=== PATIENT | male | born 1965 | race Caucasian/White ===

== ENCOUNTER 2016-02-13 13:07 | Inpatient (IN) | payer OTHER ==
[2016-02-13 16:10] VITALS: BMI 26.6
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
[2016-02-13] MEDS ORDERED: MAGNESIUM HYDROX 2400MG/30ML ORAL SUSPENSION 30 ML CUP PO PRN (16:38)
[2016-02-13] MEDS ORDERED: MAGNESIUM CITRATE 300 ML BOTTLE PO PRN (16:38)
[2016-02-13] MEDS ORDERED: MENTHOL/PHENOL 1 EACH UD MM PRN (16:38)
[2016-02-13] MEDS ORDERED: MAG HYDROX/AL HYDROX/SIMETH 30 ML UNIT-DOSE CUP PO PRN (16:38)
[2016-02-13] MEDS ORDERED: hydrOXYzine PAMOATE 50 MG CAPSULE (FP) PO PRN (16:38)
[2016-02-13] MEDS ORDERED: LOPERAMIDE HCL 2 MG CAPSULE PO PRN (16:38)
[2016-02-13] MEDS ORDERED: ACETAMINOPHEN 325 MG TABLET (FP) PO PRN (16:38)
[2016-02-13] MEDS ORDERED: chlordiazePOXIDE HCL 25 MG CAPSULE PO PRN (16:38)
[2016-02-13] MEDS ORDERED: P-EPHED 60MG/TRIPROLIDI 2.5MG TABLET PO PRN (16:38)
[2016-02-13] MEDS ORDERED: IBUPROFEN 400 MG TABLET (FP) PO PRN (16:38)
[2016-02-13] MEDS ORDERED: NICOTINE POLACRILEX 2 MG GUM BC PRN (16:38)
[2016-02-13] MEDS ORDERED: guaiFENesin/D-METHORPHAN HB 10 ML UNIT-DOSE CUPS PO PRN (16:38)
[2016-02-13] MEDS ORDERED: ONDANSETRON *ODT* 4 MG TABLET SL PRN (16:52)
[2016-02-13] MEDS ORDERED: chlordiazePOXIDE HCL 25 MG CAPSULE PO ONE (18:45)
[2016-02-13] MEDS: THIAMINE HCL 100 MG TABLET (FP) PO SCH (22:05)
[2016-02-13] MEDS: chlordiazePOXIDE HCL 25 MG CAPSULE PO SCH (22:06)
[2016-02-13] MEDS: diphenhydrAMINE HCL 50 MG CAPSULE PO PRN (22:07)
[2016-02-13 22:59] LABS: URINE APPEARANCE SLCLOUDY; URINE BLOOD NEGATIVE (NEGATIVE); URINE COLOR AMBER; URINE GLUCOSE (UA) NEGATIVE (NEGATIVE); URINE KETONE 1+ (NEGATIVE); URINE LEUK ESTERASE NEGATIVE (NEGATIVE); URINE NITRITE NEGATIVE (NEGATIVE); URINE UROBILINOGEN NEGATIVE E.U./dl (0.2-1.0)
[2016-02-13 23:01] LABS: URINE PROTEIN 2+ (NEGATIVE)
[2016-02-13 23:07] LABS: URINE BACTERIA RARE /hpf (NONE SEEN); URINE HYALINE CAST 1 /lpf; URINE MUCUS MODERATE; URINE RBC 6 /hpf (0-3); URINE WBC 4 /hpf (3-5); YEAST FEW
[2016-02-14] MEDS: chlordiazePOXIDE HCL 25 MG CAPSULE PO SCH ×4 (06:22→22:12)
[2016-02-14] MEDS: PRENATAL VITAMINS W/ FOLIC ACID TABLET (FP) PO SCH (10:09)
[2016-02-14] MEDS: cloNIDine HCL 0.1 MG TABLET PO PRN (10:09)
[2016-02-14] MEDS: CYCLOBENZAPRINE HCL 10 MG TABLET (FP) PO PRN (10:09)
[2016-02-14] MEDS: NICOTINE 21 MG/24 HOURS TOPICAL PATCH TD SCH (10:10)
--- NOTE | 2016-02-14 10:17 | PN ---
S CIWA - CIWA Score Nausea/Vomitin Muscle Tremors: 3 Anxiety: 3 Agitation: 2 Paroxysmal Sweats: 2 Orientation: 0-Oriented Tacttile Disturbances: 1-Very Mild Itch/Numbness Auditory Disturbances: 1-Very Mild Visual Disturbances: 1-Very Mild Sensitivity Headache: 2-Mild CIWA-Ar Total Score: 18 BHS Progress Note (SOAP) Subjective: ALERT,IRRITABLE,ANXIOUS,INTERRUPTED SLEEP,TREMOR Objective: 02/14/16 10:14 Vital Signs Temperature 98.0 F 02/14/16 09:37 Pulse Rate 88 02/14/16 09:37 Respiratory Rate 18 02/14/16 09:37 Blood Pressure 122/84 02/14/16 09:37 O2 Sat by Pulse Oximetry (%) EKG NSR NO CHEST PAIN,NO SOB,NO DIZZINESS Laboratory Last Values Urine Color Leslie 02/13/16 22:05 Urine Appearance Slcloudy 02/13/16 22:05 Urine pH 9.0 (5.0-8.0) H D 02/13/16 22:05 Ur Specific [place] 1.026 (1.001-1.035) 02/13/16 22:05 Urine Protein 2+ (NEGATIVE) H 02/13/16 22:05 Urine Glucose (UA) Negative (NEGATIVE) 02/13/16 22:05 Urine Ketones 1+ (NEGATIVE) H 02/13/16 22:05 Urine Blood Negative (NEGATIVE) 02/13/16 22:05 Urine Nitrite Negative (NEGATIVE) 02/13/16 22:05 Urine Bilirubin 2.0 (NEGATIVE) 02/13/16 22:05 Urine Urobilinogen Negative E.U./dl (0.2-1.0) 02/13/16 22:05 Ur Leukocyte Esterase Negative (NEGATIVE) 02/13/16 22:05 Urine RBC 6 /hpf (0-3) 02/13/16 22:05 Urine WBC 4 /hpf (3-5) 02/13/16 22:05 Urine Bacteria Rare /hpf (NONE SEEN) 02/13/16 22:05 Hyaline Casts 1 /lpf 02/13/16 22:05 Urine Mucus Moderate 02/13/16 22:05 Urine Yeast Few 02/13/16 22:05 LABS PENDING Assessment: 02/14/16 10:15 WITHDRAWAL SYMPTOM Plan: CONTINUE DETOX,ENCOURAGE ORAL FLUID
[2016-02-14 11:26] LABS: MCH 32.9 pg (25.7-33.7); MCHC 33.1 g/dl (32.0-35.9); MEAN CELL VOLUME 99.4 fl (80-96); MEAN PLT VOLUME 9.5 fl (7.5-11.1); PLATELET COUNT 169 K/MM3 (134-434); RDW 13.7 % (11.9-15.9); WHITE BLOOD COUNT 12.6 K/mm3 (4.0-10.0)
[2016-02-14 11:45] LABS: ALBUMIN 4.5 g/dl (3.4-5.0); ALK PHOS 89 U/L (45-117); ANION GAP 12 (8-16); BILIRUBIN,TOTAL 0.5 mg/dL (0.2-1.0); CALCIUM 9.4 mg/dL (8.5-10.1); CO2 29 mmol/L (21-32); GLUCOSE,RANDOM 97 mg/dL (74-106); SGOT/AST 61 U/L (15-37); SGPT/ALT 33 U/L (12-78); TOT PROT 8.1 g/dl (6.4-8.2)
[2016-02-14] MEDS: THIAMINE HCL 100 MG TABLET (FP) PO SCH (22:12)
[2016-02-14] MEDS: diphenhydrAMINE HCL 50 MG CAPSULE PO PRN (22:12)
[2016-02-15] MEDS: chlordiazePOXIDE HCL 25 MG CAPSULE PO SCH ×3 (06:00→17:16)
--- NOTE | 2016-02-15 10:21 | PN ---
S CIWA - CIWA Score Nausea/Vomitin Muscle Tremors: 3 Anxiety: 2 Agitation: 2 Paroxysmal Sweats: 1-Minimal Palms Moist Orientation: 0-Oriented Tacttile Disturbances: 1-Very Mild Itch/Numbness Auditory Disturbances: 1-Very Mild Visual Disturbances: 1-Very Mild Sensitivity Headache: 1-Very Mild CIWA-Ar Total Score: 15 S Progress Note (SOAP) Subjective: ALERT,IRRITABLE,ANXIOUS,INTERRUPTED SLEEP,TREMOR, Objective: 02/15/16 10:18 Vital Signs Temperature 96.2 F L 02/15/16 09:43 Pulse Rate 69 02/15/16 09:43 Respiratory Rate 18 02/15/16 09:43 Blood Pressure 114/79 02/15/16 09:43 O2 Sat by Pulse Oximetry (%) Laboratory Last Values WBC 12.6 K/mm3 (4.0-10.0) H 02/14/16 06:00 RBC 4.61 M/mm3 (4.00-5.60) 02/14/16 06:00 Hgb 15.2 GM/dL (11.7-16.9) 02/14/16 06:00 Hct 45.9 % (35.4-49) 02/14/16 06:00 MCV 99.4 fl (80-96) H 02/14/16 06:00 MCHC 33.1 g/dl (32.0-35.9) 02/14/16 06:00 RDW 13.7 % (11.9-15.9) 02/14/16 06:00 Plt Count 169 K/MM3 (134-434) D 02/14/16 06:00 MPV 9.5 fl (7.5-11.1) 02/14/16 06:00 Sodium 137 mmol/L (136-145) 02/14/16 06:00 Potassium 3.5 mmol/L (3.5-5.1) 02/14/16 06:00 Chloride 96 mmol/L (98-107) L 02/14/16 06:00 Carbon Dioxide 29 mmol/L (21-32) 02/14/16 06:00 Anion Gap 12 (8-16) 02/14/16 06:00 BUN 10 mg/dL (7-18) 02/14/16 06:00 Creatinine 1.0 mg/dL (0.7-1.3) D 02/14/16 06:00 Creat Clearance w eGFR > 60 (>60) 02/14/16 06:00 Random Glucose 97 mg/dL (74-106) 02/14/16 06:00 Calcium 9.4 mg/dL (8.5-10.1) 02/14/16 06:00 Total Bilirubin 0.5 mg/dL (0.2-1.0) D 02/14/16 06:00 AST 61 U/L (15-37) H D 02/14/16 06:00 ALT 33 U/L (12-78) D 02/14/16 06:00 Alkaline Phosphatase 89 U/L (45-117) D 02/14/16 06:00 Total Protein 8.1 g/dl (6.4-8.2) 02/14/16 06:00 Albumin 4.5 g/dl (3.4-5.0) 02/14/16 06:00 Urine Color Leslie 02/13/16 22:05 Urine Appearance Slcloudy 02/13/16 22:05 Urine pH 9.0 (5.0-8.0) H D 02/13/16 22:05 Ur Specific [place] 1.026 (1.001-1.035) 02/13/16 22:05 Urine Protein 2+ (NEGATIVE) H 02/13/16 22:05 Urine Glucose (UA) Negative (NEGATIVE) 02/13/16 22:05 Urine Ketones 1+ (NEGATIVE) H 02/13/16 22:05 Urine Blood Negative (NEGATIVE) 02/13/16 22:05 Urine Nitrite Negative (NEGATIVE) 02/13/16 22:05 Urine Bilirubin 2.0 (NEGATIVE) 02/13/16 22:05 Urine Urobilinogen Negative E.U./dl (0.2-1.0) 02/13/16 22:05 Ur Leukocyte Esterase Negative (NEGATIVE) 02/13/16 22:05 Urine RBC 6 /hpf (0-3) 02/13/16 22:05 Urine WBC 4 /hpf (3-5) 02/13/16 22:05 Urine Bacteria Rare /hpf (NONE SEEN) 02/13/16 22:05 Hyaline Casts 1 /lpf 02/13/16 22:05 Urine Mucus Moderate 02/13/16 22:05 Urine Yeast Few 02/13/16 22:05 RPR Titer Nonreactive (NONREACTIVE) 02/14/16 06:00 Hepatitis C Antibody <0.1 s/co ratio (0.0-0.9) 02/14/16 06:00 Assessment: 02/15/16 10:19 WITHDRAWAL SYMPTOM Plan: CONTINUE DETOX,WBC 12,600,ENCOURAGE ORAL FLUID,REPEAT CBC IN AM
[2016-02-15] MEDS: PRENATAL VITAMINS W/ FOLIC ACID TABLET (FP) PO SCH (10:34)
[2016-02-15] MEDS: CYCLOBENZAPRINE HCL 10 MG TABLET (FP) PO PRN (10:34)
[2016-02-15] MEDS: cloNIDine HCL 0.1 MG TABLET PO PRN (10:34)
[2016-02-15] MEDS: NICOTINE 21 MG/24 HOURS TOPICAL PATCH TD SCH (10:34)
[2016-02-15] MEDS: diphenhydrAMINE HCL 50 MG CAPSULE PO PRN (22:10)
[2016-02-15] MEDS: THIAMINE HCL 100 MG TABLET (FP) PO SCH (22:10)
[2016-02-15] MEDS: chlordiazePOXIDE 5 MG CAPSULE PO SCH (22:12)
[2016-02-16] MEDS: chlordiazePOXIDE 5 MG CAPSULE PO SCH ×2 (05:39→10:55)
[2016-02-16 06:21] VITALS: TEMP 96.7
--- NOTE | 2016-02-16 08:24 | PN ---
S Progress Note (SOAP) Subjective: alert,no complaint Objective: 02/16/16 08:21 Vital Signs Temperature 96.7 F L 02/16/16 06:20 Pulse Rate 70 02/16/16 06:20 Respiratory Rate 16 02/16/16 06:20 Blood Pressure 95/75 02/16/16 06:20 O2 Sat by Pulse Oximetry (%) Assessment: 02/16/16 08:21 patient is stable for discharge Plan: discharge today,follow up with after care program [facility]
--- NOTE | 2016-02-16 08:28 | DS ---
[facility] Detox Discharge Summary Admission Date: 02/13/16 Discharge Date: 02/16/16 - History Present History: Alcohol Dependence, Cannabis Dependence Additional Comments: stable for discharge today,follow up with after care program as arrangement Pertinent Past History: nicotine dependence s/p left inguinal hernia repair s/p surgery left knee - Physical Exam Results Vital Signs: Vital Signs Temperature 96.7 F L 02/16/16 06:20 Pulse Rate 70 02/16/16 06:20 Respiratory Rate 16 02/16/16 06:20 Blood Pressure 95/75 02/16/16 06:20 O2 Sat by Pulse Oximetry (%) - Treatment Hospital Course: Detox Protocol Followed, Detoxed Safely, Responded well, Discharged Condition Good Patient has Accepted a Rehab Referral to: declined - Medication Discharge Medications: Ambulatory Orders NK [No Known Home Medication] 02/13/16 - AMA Did Patient Leave Against Medical Advice: No
[2016-02-16 09:57] VITALS: BP 114/79; PULSE 80
[2016-02-16] MEDS: PRENATAL VITAMINS W/ FOLIC ACID TABLET (FP) PO SCH (10:55)
[2016-02-16] MEDS: NICOTINE 21 MG/24 HOURS TOPICAL PATCH TD SCH (10:55)
[2016-02-16 11:06] LABS: MCH 32.8 pg (25.7-33.7); MCHC 32.6 g/dl (32.0-35.9); MEAN CELL VOLUME 100.5 fl (80-96); MEAN PLT VOLUME 9.9 fl (7.5-11.1); PLATELET COUNT 121 K/MM3 (134-434); RDW 13.5 % (11.9-15.9)
[2016-02-16] MEDS ORDERED: chlordiazePOXIDE HCL 10 MG CAPSULE PO SCH (23:00)
== END 2016-02-16 09:10 | disposition home or self-care (01) | DRG 775 ==
LOC: YASAS 13:07 → Y3N 18:31
PROVIDERS: ADMIT Internal Medicine; ATTEND Internal Medicine
PROC: HZ2ZZZZ Detoxification Services for Substance Abuse Treatment (ICD-10-PCS; principal; 2016-02-13)
DX: F10.230 Alcohol dependence with withdrawal, uncomplicated (principal); F12.20 Cannabis dependence, uncomplicated; F17.210 Nicotine dependence, cigarettes, uncomplicated; Z98.890 Other specified postprocedural states
CPT/HCPCS: 36415; 80053; 81003; 81015; 85027; 86593; 86803; 93005; 93010

== ENCOUNTER 2016-11-30 10:51 | Inpatient (IN) | payer OTHER ==
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
[2016-11-30] MEDS ORDERED: hydrOXYzine PAMOATE 50 MG CAPSULE (FP) PO PRN (12:42)
[2016-11-30] MEDS ORDERED: ACETAMINOPHEN 325 MG TABLET (FP) PO PRN (12:42)
[2016-11-30] MEDS ORDERED: MAG HYDROX/AL HYDROX/SIMETH 30 ML UNIT-DOSE CUP PO PRN (12:42)
[2016-11-30] MEDS ORDERED: guaiFENesin/D-METHORPHAN HB 10 ML UNIT-DOSE CUPS PO PRN (12:42)
[2016-11-30] MEDS ORDERED: MENTHOL/PHENOL 1 EACH UD MM PRN (12:42)
[2016-11-30] MEDS ORDERED: MAGNESIUM CITRATE 300 ML BOTTLE PO PRN (12:42)
[2016-11-30] MEDS ORDERED: LOPERAMIDE HCL 2 MG CAPSULE PO PRN (12:42)
[2016-11-30] MEDS ORDERED: P-EPHED 60MG/TRIPROLIDI 2.5MG TABLET PO PRN (12:42)
[2016-11-30] MEDS ORDERED: MAGNESIUM HYDROX 2400MG/30ML ORAL SUSPENSION 30 ML CUP PO PRN (12:42)
[2016-11-30] MEDS ORDERED: IBUPROFEN 400 MG TABLET (FP) PO PRN (12:42)
[2016-11-30] MEDS ORDERED: NICOTINE POLACRILEX 4 MG GUM BUC PRN (12:49)
[2016-11-30] MEDS ORDERED: chlordiazePOXIDE HCL 25 MG CAPSULE PO ONE (14:00)
[2016-11-30 16:16] VITALS: BMI 27.4
--- NOTE | 2016-11-30 16:42 | PN ---
[facility] Progress Note Note: As we were about to sent pt. to detox unit we noted that he was very lethargic and difficult to arouse. According to hx. he only uses alcohol. Breathing with deep sigh only,profuse sweating. Eyes : Pupils are pinpoint Dx. : Heroin overdose P : Narcan 0.4mg IM Pt. is more alert, tells EMS that he used one bag of heroin while waiting outside. Pt. is sent to ED, report given to Dr. Novak
[2016-11-30] MEDS ORDERED: TRIMETHOBENZAMIDE HCL 200MG/2ML INJ IM PRN (20:58)
[2016-11-30] MEDS: chlordiazePOXIDE HCL 25 MG CAPSULE PO SCH ×2 (22:35→22:37)
[2016-11-30] MEDS: THIAMINE HCL 100 MG TABLET (FP) PO SCH (22:35)
[2016-11-30] MEDS: diphenhydrAMINE HCL 50 MG CAPSULE PO PRN (22:35)
[2016-11-30] MEDS: NICOTINE 21 MG/24 HOURS TOPICAL PATCH TD SCH (22:37)
[2016-11-30 23:00] LABS: URINE APPEARANCE CLEAR; URINE BILIRUBIN NEGATIVE (NEGATIVE); URINE BLOOD NEGATIVE (NEGATIVE); URINE COLOR LTYELLOW; URINE GLUCOSE (UA) NEGATIVE (NEGATIVE); URINE KETONE TRACE (NEGATIVE); URINE NITRITE NEGATIVE (NEGATIVE); URINE PROTEIN NEGATIVE (NEGATIVE); URINE UROBILINOGEN NEGATIVE mg/dL (0.2-1.0)
[2016-12-01] MEDS: diphenhydrAMINE HCL 50 MG CAPSULE PO PRN ×2 (01:03→22:16)
[2016-12-01] MEDS: chlordiazePOXIDE HCL 25 MG CAPSULE PO PRN ×3 (01:15→19:22)
[2016-12-01] MEDS: chlordiazePOXIDE HCL 25 MG CAPSULE PO SCH ×4 (06:52→22:16)
[2016-12-01 09:53] LABS: MCH 32.8 pg (25.7-33.7); MCHC 32.6 g/dl (32.0-35.9); MEAN CELL VOLUME 100.6 fl (80-96); MEAN PLT VOLUME 9.4 fl (7.5-11.1); PLATELET COUNT 153 K/MM3 (134-434); WHITE BLOOD COUNT 13.9 K/mm3 (4.0-10.0)
[2016-12-01 10:22] LABS: ALBUMIN 4.2 g/dl (3.4-5.0); ALK PHOS 95 U/L (45-117); ANION GAP 10 (8-16); CALCIUM 8.8 mg/dL (8.5-10.1); CO2 30 mmol/L (21-32); CREATININE 0.8 mg/dL (0.7-1.3); GLUCOSE,RANDOM 87 mg/dL (74-106); SGOT/AST 60 U/L (15-37); SGPT/ALT 29 U/L (12-78)
[2016-12-01] MEDS: PRENATAL VITAMINS W/ FOLIC ACID TABLET (FP) PO SCH (10:29)
[2016-12-01] MEDS: NICOTINE 21 MG/24 HOURS TOPICAL PATCH TD SCH (10:29)
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
--- NOTE | 2016-12-01 11:01 | EKG ---
Test Reason : Blood Pressure : / mmHG Vent. Rate : 082 BPM Atrial Rate : 082 BPM P-R Int : 150 ms QRS Dur : 104 ms QT Int : 376 ms P-R-T Axes : 064 031 025 degrees QTc Int : 439 ms NORMAL SINUS RHYTHM MINIMAL VOLTAGE CRITERIA FOR LVH, MAY BE NORMAL VARIANT BORDERLINE ECG NO PREVIOUS ECGS AVAILABLE Confirmed by TERRY BOWLES, LUDMILA ([id number]) on 12/01/2016 11:01:09 AM Referred By: Confirmed By:LUDMILA STEWART MD
--- NOTE | 2016-12-01 11:37 | PN ---
S CIWA - CIWA Score Nausea/Vomitin Muscle Tremors: 4-Moderate,w/Arms Extend Anxiety: 4-Mod. Anxious/Guarded Agitation: 4-Moderately Restless Paroxysmal Sweats: 5 Orientation: 0-Oriented Tacttile Disturbances: 0-None Auditory Disturbances: 0-None Visual Disturbances: 0-None Headache: 0-None Present CIWA-Ar Total Score: 19 BHS Progress Note (SOAP) Subjective: Tremors,anxiety,drenched sweat,restless,interrupted sleep. Objective: 12/01/16 11:35 Vital Signs - 8 hr 12/01/16 12/01/16 06:00 10:00 Temperature 99.1 F 98.3 F Pulse Rate 85 92 H Respiratory 18 18 Rate Blood Pressure 129/88 119/82 Laboratory Tests 11/30/16 12/01/16 12/01/16 22:45 07:30 07:30 WBC 13.9 H D RBC 4.51 Hgb 14.8 Hct 45.4 MCV 100.6 H MCH 32.8 MCHC 32.6 RDW 14.0 Plt Count 153 MPV 9.4 Sodium 136 Potassium 3.9 Chloride 96 L D Carbon Dioxide 30 D Anion Gap 10 BUN 16 D Creatinine 0.8 Creat Clearance w eGFR > 60 Random Glucose 87 D Calcium 8.8 Total Bilirubin 1.0 D AST 60 H ALT 29 Alkaline Phosphatase 95 Total Protein 8.0 Albumin 4.2 Urine Color Ltyellow Urine Appearance Clear Urine pH 5.0 D Urine Protein Negative Urine Glucose (UA) Negative Urine Ketones Trace H Urine Blood Negative Urine Nitrite Negative Urine Bilirubin Negative Urine Urobilinogen Negative RPR Titer 12/01/16 07:30 WBC RBC Hgb Hct MCV MCH MCHC RDW Plt Count MPV Sodium Potassium Chloride Carbon Dioxide Anion Gap BUN Creatinine Creat Clearance w eGFR Random Glucose Calcium Total Bilirubin AST ALT Alkaline Phosphatase Total Protein Albumin Urine Color Urine Appearance Urine pH Urine Protein Urine Glucose (UA) Urine Ketones Urine Blood Urine Nitrite Urine Bilirubin Urine Urobilinogen RPR Titer Nonreactive labs noted Assessment: 12/01/16 11:36 Withdrawal sx. Plan: Continue detox
[2016-12-01 14:03] LABS: URINE LEUK ESTERASE Negative (NEGATIVE)
[2016-12-01] MEDS: THIAMINE HCL 100 MG TABLET (FP) PO SCH (22:16)
[2016-12-02] MEDS: chlordiazePOXIDE HCL 25 MG CAPSULE PO SCH ×2 (05:52→10:49)
[2016-12-02] MEDS: NICOTINE 21 MG/24 HOURS TOPICAL PATCH TD SCH (10:49)
[2016-12-02] MEDS: PRENATAL VITAMINS W/ FOLIC ACID TABLET (FP) PO SCH (10:49)
--- NOTE | 2016-12-02 12:01 | PN ---
S CIWA - CIWA Score Nausea/Vomitin Muscle Tremors: 3 Anxiety: 3 Agitation: 2 Paroxysmal Sweats: 1-Minimal Palms Moist Orientation: 0-Oriented Tacttile Disturbances: 1-Very Mild Itch/Numbness Auditory Disturbances: 1-Very Mild Visual Disturbances: 1-Very Mild Sensitivity Headache: 2-Mild CIWA-Ar Total Score: 17 BHS Progress Note (SOAP) Subjective: ALERT,IRRITABLE,ANXIOUS,INTERRUPTED SLEEP Objective: 12/02/16 11:59 Vital Signs Temperature 97.9 F 12/02/16 10:09 Pulse Rate 82 12/02/16 10:09 Respiratory Rate 18 12/02/16 10:09 Blood Pressure 125/86 12/02/16 10:09 O2 Sat by Pulse Oximetry (%) Laboratory Last Values WBC 13.9 K/mm3 (4.0-10.0) H D 12/01/16 07:30 RBC 4.51 M/mm3 (4.00-5.60) 12/01/16 07:30 Hgb 14.8 GM/dL (11.7-16.9) 12/01/16 07:30 Hct 45.4 % (35.4-49) 12/01/16 07:30 MCV 100.6 fl (80-96) H 12/01/16 07:30 MCH 32.8 pg (25.7-33.7) 12/01/16 07:30 MCHC 32.6 g/dl (32.0-35.9) 12/01/16 07:30 RDW 14.0 % (11.9-15.9) 12/01/16 07:30 Plt Count 153 K/MM3 (134-434) 12/01/16 07:30 MPV 9.4 fl (7.5-11.1) 12/01/16 07:30 Sodium 136 mmol/L (136-145) 12/01/16 07:30 Potassium 3.9 mmol/L (3.5-5.1) 12/01/16 07:30 Chloride 96 mmol/L (98-107) L D 12/01/16 07:30 Carbon Dioxide 30 mmol/L (21-32) D 12/01/16 07:30 Anion Gap 10 (8-16) 12/01/16 07:30 BUN 16 mg/dL (7-18) D 12/01/16 07:30 Creatinine 0.8 mg/dL (0.7-1.3) 12/01/16 07:30 Creat Clearance w eGFR > 60 (>60) 12/01/16 07:30 Random Glucose 87 mg/dL (74-106) D 12/01/16 07:30 Calcium 8.8 mg/dL (8.5-10.1) 12/01/16 07:30 Total Bilirubin 1.0 mg/dL (0.2-1.0) D 12/01/16 07:30 AST 60 U/L (15-37) H 12/01/16 07:30 ALT 29 U/L (12-78) 12/01/16 07:30 Alkaline Phosphatase 95 U/L (45-117) 12/01/16 07:30 Total Protein 8.0 g/dl (6.4-8.2) 12/01/16 07:30 Albumin 4.2 g/dl (3.4-5.0) 12/01/16 07:30 Urine Color Ltyellow 11/30/16 22:45 Urine Appearance Clear 11/30/16 22:45 Urine pH 5.0 (5.0-8.0) D 11/30/16 22:45 Ur Specific [place] <= 1.005 (1.005-1.025) 11/30/16 22:45 Urine Protein Negative (NEGATIVE) 11/30/16 22:45 Urine Glucose (UA) Negative (NEGATIVE) 11/30/16 22:45 Urine Ketones Trace (NEGATIVE) H 11/30/16 22:45 Urine Blood Negative (NEGATIVE) 11/30/16 22:45 Urine Nitrite Negative (NEGATIVE) 11/30/16 22:45 Urine Bilirubin Negative (NEGATIVE) 11/30/16 22:45 Urine Urobilinogen Negative mg/dL (0.2-1.0) 11/30/16 22:45 Ur Leukocyte Esterase Negative (NEGATIVE) 11/30/16 22:45 RPR Titer Nonreactive (NONREACTIVE) 12/01/16 07:30 Assessment: 12/02/16 11:59 WITHDRAWAL SYMPTOM 12/02/16 12:00 Plan: CONTINUE DETOX,REPEAT CBC IN AM,ENCOURAGE ORAL FLUID
[2016-12-02] MEDS: chlordiazePOXIDE HCL 25 MG CAPSULE PO PRN (14:09)
[2016-12-02] MEDS: chlordiazePOXIDE 5 MG CAPSULE PO SCH ×2 (17:29→22:42)
[2016-12-02] MEDS: THIAMINE HCL 100 MG TABLET (FP) PO SCH (22:42)
[2016-12-02] MEDS: diphenhydrAMINE HCL 50 MG CAPSULE PO PRN (22:43)
[2016-12-03] MEDS: chlordiazePOXIDE 5 MG CAPSULE PO SCH ×2 (06:08→10:34)
[2016-12-03 10:05] LABS: MCH 32.9 pg (25.7-33.7); MCHC 32.7 g/dl (32.0-35.9); MEAN CELL VOLUME 100.8 fl (80-96); PLATELET COUNT 128 K/MM3 (134-434); RDW 13.5 % (11.9-15.9); WHITE BLOOD COUNT 8.4 K/mm3 (4.0-10.0)
--- NOTE | 2016-12-03 10:25 | PN ---
BHS Progress Note (SOAP) Subjective: alert,irritable,interrupted sleep Objective: 12/03/16 10:24 Vital Signs Temperature 96.8 F L 12/03/16 10:16 Pulse Rate 69 12/03/16 10:16 Respiratory Rate 20 12/03/16 10:16 Blood Pressure 135/95 12/03/16 10:16 O2 Sat by Pulse Oximetry (%) Assessment: 12/03/16 10:25 withdrawal symptom Plan: continue detox,discharge in am
[2016-12-03] MEDS: PRENATAL VITAMINS W/ FOLIC ACID TABLET (FP) PO SCH (10:34)
[2016-12-03] MEDS: NICOTINE 21 MG/24 HOURS TOPICAL PATCH TD SCH (10:35)
[2016-12-03] MEDS: chlordiazePOXIDE HCL 10 MG CAPSULE PO SCH ×2 (17:55→22:53)
[2016-12-03] MEDS: diphenhydrAMINE HCL 50 MG CAPSULE PO PRN (22:53)
[2016-12-03] MEDS: THIAMINE HCL 100 MG TABLET (FP) PO SCH (22:53)
[2016-12-04] MEDS: chlordiazePOXIDE HCL 10 MG CAPSULE PO SCH (06:03)
[2016-12-04 06:31] VITALS: BP 108/74; PULSE 63; TEMP 96.8
--- NOTE | 2016-12-04 08:48 | DS ---
[facility] Det[facility] Discharge Summary Admission Date: 11/30/16 Discharge Date: 12/04/16 - History Present History: Alcohol Dependence Additional Comments: follow up with after care program as arrangement Pertinent Past History: syncope nicotine dependence - Physical Exam Results Vital Signs: Vital Signs Temperature 96.8 F L 12/04/16 06:31 Pulse Rate 63 12/04/16 06:31 Respiratory Rate 16 12/04/16 06:31 Blood Pressure 108/74 12/04/16 06:31 O2 Sat by Pulse Oximetry (%) Pertinent Admission Physical Exam Findings: withdrawal symptom - Treatment Hospital Course: Detox Protocol Followed, Detoxed Safely, Responded well, Discharged Condition Good, Rehab Referral Accepted Patient has Accepted a Rehab Referral to: [facility] - Medication Discharge Medications: Ambulatory Orders NK [No Known Home Medication] 02/13/16 - AMA Did Patient Leave Against Medical Advice: No
== END 2016-12-04 09:28 | disposition home or self-care (01) | DRG 775 ==
LOC: YASAS 10:51 → Y6N 14:01
PROVIDERS: ADMIT Internal Medicine; ATTEND Internal Medicine
PROC: HZ2ZZZZ Detoxification Services for Substance Abuse Treatment (ICD-10-PCS; principal; 2016-11-29)
DX: F10.230 Alcohol dependence with withdrawal, uncomplicated (principal); F12.20 Cannabis dependence, uncomplicated; F17.210 Nicotine dependence, cigarettes, uncomplicated; F19.282 Other psychoactive substance dependence with psychoactive substance-induced sleep disorder; T40.1X1A Poisoning by heroin, accidental (unintentional), initial encounter; R53.83 Other fatigue; Y92.238 Other place in hospital as the place of occurrence of the external cause
CPT/HCPCS: 36415; 80053; 81003; 85027; 86593; 93005; 93010

== ENCOUNTER 2016-11-30 16:56 | Emergency (ER) | payer SELFPAY ==
[2016-11-30 17:22] VITALS: TEMP 97.9; BMI 25.8
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
[2016-11-30 18:33] VITALS: BP 134/78; PULSE 89
[2016-11-30 18:33] LABS: BASOPHIL 0.7 % (0-2.0); EOSINOPHIL 0.6 % (0-4.5); MCH 33.4 pg (25.7-33.7); MCHC 33.7 g/dl (32.0-35.9); MEAN CELL VOLUME 99.2 fl (80-96); NEUTROPHILS 67.1 % (42.8-82.8); PLATELET COUNT 163 K/MM3 (134-434); RDW 13.9 % (11.9-15.9); WHITE BLOOD COUNT 6.8 K/mm3 (4.0-10.0)
[2016-11-30 19:02] LABS: ANION GAP 12 (8-16); CALCIUM 8.1 mg/dL (8.5-10.1); CO2 24 mmol/L (21-32); GLUCOSE,RANDOM 111 mg/dL (74-106)
[2016-11-30 19:08] LABS: ALK PHOS 93 U/L (45-117); BILIRUBIN,TOTAL 0.4 mg/dL (0.2-1.0); CPK 123 IU/L (39-308); CREATININE 0.8 mg/dL (0.7-1.3); SGOT/AST 66 U/L (15-37); SGPT/ALT 30 U/L (12-78); TOT PROT 7.7 g/dl (6.4-8.2); TROPONIN I < 0.02 ng/ml (0.00-0.05)
--- NOTE | 2016-12-01 10:56 | EKG ---
Test Reason : Blood Pressure : / mmHG Vent. Rate : 081 BPM Atrial Rate : 081 BPM P-R Int : 152 ms QRS Dur : 106 ms QT Int : 406 ms P-R-T Axes : 059 022 026 degrees QTc Int : 471 ms NORMAL SINUS RHYTHM NORMAL ECG NO PREVIOUS ECGS AVAILABLE BASELINE ARTIFACT Confirmed by TERRY BOWLES, LUDMILA ([id number]) on 12/01/2016 10:55:42 AM Referred By: Confirmed By:LUDMILA STEWART MD
== END 2016-11-30 20:02 | disposition home or self-care (01) ==
LOC: JER 16:56
DX: F10.230 Alcohol dependence with withdrawal, uncomplicated (principal); T40.1X1A Poisoning by heroin, accidental (unintentional), initial encounter; R55 Syncope and collapse; Y92.238 Other place in hospital as the place of occurrence of the external cause
CPT/HCPCS: 36415; 71010-TC; 80053; 80307; 82550; 83735; 84484; 85025; 93005; 93010; 99285-25

== ENCOUNTER 2018-06-18 14:15 | Inpatient (IN) | payer OTHER ==
[2018-06-18 18:53] VITALS: BMI 27.3
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
[2018-06-18] MEDS ORDERED: MAG HYDROX/AL HYDROX/SIMETH 30 ML UNIT-DOSE CUP PO PRN (20:02)
[2018-06-18] MEDS ORDERED: NICOTINE POLACRILEX 2 MG GUM BUC PRN (20:02)
[2018-06-18] MEDS ORDERED: MENTHOL/PHENOL 1 EACH UD MM PRN (20:02)
[2018-06-18] MEDS ORDERED: MAGNESIUM CITRATE 300 ML BOTTLE PO PRN (20:02)
[2018-06-18] MEDS ORDERED: IBUPROFEN 400 MG TABLET (FP) PO PRN (20:02)
[2018-06-18] MEDS ORDERED: BISMUTH SUBSALICYLATE 524 MG/30 ML UD PO PRN (20:02)
[2018-06-18] MEDS ORDERED: ACETAMINOPHEN 325 MG TABLET (FP) PO PRN ×2 (20:02)
[2018-06-18] MEDS ORDERED: METHOCARBAMOL 500 MG TABLET PO PRN (20:02)
[2018-06-18] MEDS ORDERED: chlordiazePOXIDE HCL 25 MG CAPSULE PO PRN (20:02)
[2018-06-18] MEDS ORDERED: MAGNESIUM HYDROX 2400MG/30ML ORAL SUSPENSION 30 ML CUP PO PRN (20:02)
[2018-06-18] MEDS: THIAMINE HCL 100 MG TABLET (FP) PO SCH (21:31)
[2018-06-18] MEDS: chlordiazePOXIDE HCL 25 MG CAPSULE PO SCH (22:28)
[2018-06-19] MEDS: chlordiazePOXIDE HCL 25 MG CAPSULE PO SCH ×4 (05:13→22:04)
[2018-06-19 10:06] LABS: HEMATOCRIT 42.9 % (35.4-49); HEMOGLOBIN 14.1 GM/dL (11.7-16.9); MCH 33.4 pg (25.7-33.7); MCHC 32.9 g/dl (32.0-35.9); MEAN CELL VOLUME 101.6 fl (80-96); MEAN PLT VOLUME 9.6 fl (7.5-11.1); PLATELET COUNT 137 K/MM3 (134-434); RBC 4.22 M/mm3 (4.00-5.60); RDW 13.2 % (11.9-15.9); WHITE BLOOD COUNT 6.9 K/mm3 (4.0-10.0)
[2018-06-19] MEDS: PRENATAL VITAMINS W/ FOLIC ACID TABLET (FP) PO SCH (10:12)
[2018-06-19 10:22] LABS: ALBUMIN 3.4 g/dl (3.4-5.0); BILIRUBIN,TOTAL 0.4 mg/dL (0.2-1); CREATININE 0.7 mg/dL (0.55-1.3); POTASSIUM 3.9 mmol/L (3.5-5.1); TOT PROT 6.6 g/dl (6.4-8.2)
--- NOTE | 2018-06-19 16:30 | PN ---
S CIWA - CIWA Score Nausea/Vomitin Muscle Tremors: 4-Moderate,w/Arms Extend Anxiety: 2 Agitation: 0-Normal Activity Paroxysmal Sweats: 2 Orientation: 0-Oriented Tacttile Disturbances: 2-Mild Itch/Numbness/Burn Auditory Disturbances: 2-Mild Harshness/Frighten Visual Disturbances: 0-None Headache: 0-None Present CIWA-Ar Total Score: 15 BHS Progress Note (SOAP) Subjective: Sweating, Tremors, Nausea. Objective: PATIENT A & O X 3. IN NO ACUTE DISTRESS. PATIENT DENIES KNOWN HISTORY OF HTN. PATIENT DENIES CHEST PAIN. 06/19/18 16:28 Vital Signs Temperature 98.5 F 06/19/18 13:45 Pulse Rate 70 06/19/18 16:00 Respiratory Rate 18 06/19/18 16:00 Blood Pressure 153/93 06/19/18 13:45 O2 Sat by Pulse Oximetry (%) Laboratory Tests 06/19/18 06/19/18 07:00 07:00 WBC 6.9 RBC 4.22 Hgb 14.1 Hct 42.9 MCV 101.6 H MCH 33.4 MCHC 32.9 RDW 13.2 Plt Count 137 MPV 9.6 Sodium 142 Potassium 3.9 Chloride 106 Carbon Dioxide 31 Anion Gap 6 L BUN 15 Creatinine 0.7 Est GFR (CKD-EPI)AfAm 126.64 Est GFR (CKD-EPI)NonAf 109.27 Random Glucose 91 Calcium 9.0 Total Bilirubin 0.4 AST 58 H ALT 32 Alkaline Phosphatase 98 Total Protein 6.6 Albumin 3.4 LABS NOTED. RPR RESULT PENDING. 06/19/18 16:29 Assessment: 06/19/18 16:28 WITHDRAWAL SYMPTOMS. ELEVATED AST LEVEL. ELEVATED BLOOD PRESSURE. 06/19/18 16:29 Plan: CONTINUE DETOX. INCREASE DAILY PO FLUID / WATER INTAKE. CONTINUE TO MONITOR BP.
[2018-06-19] MEDS: THIAMINE HCL 100 MG TABLET (FP) PO SCH (22:04)
[2018-06-19] MEDS: MELATONIN 5 MG TABLETS PO PRN (22:04)
[2018-06-20] MEDS: chlordiazePOXIDE HCL 25 MG CAPSULE PO SCH ×3 (05:22→17:30)
[2018-06-20] MEDS: PRENATAL VITAMINS W/ FOLIC ACID TABLET (FP) PO SCH (10:31)
--- NOTE | 2018-06-20 17:49 | PN ---
BHS CIWA - CIWA Score Nausea/Vomitin Muscle Tremors: 3 Anxiety: 1-Mildly Anxious Agitation: 1-Slight > Activity Paroxysmal Sweats: 3 Orientation: 0-Oriented Tacttile Disturbances: 1-Very Mild Itch/Numbness Auditory Disturbances: 0-None Visual Disturbances: 0-None Headache: 0-None Present CIWA-Ar Total Score: 11 BHS Progress Note (SOAP) Subjective: Sweating, Tremors, Nausea. Objective: PATIENT A & O X 3, OBSERVED AMBULATING ON UNIT UNASSISTED. IN NO ACUTE DISTRESS. 06/20/18 17:48 Vital Signs Temperature 96.8 F L 06/20/18 16:02 Pulse Rate 74 06/20/18 16:02 Respiratory Rate 18 06/20/18 16:02 Blood Pressure 125/81 06/20/18 16:02 O2 Sat by Pulse Oximetry (%) Laboratory Tests 06/19/18 06/19/18 06/19/18 07:00 07:00 07:00 WBC 6.9 RBC 4.22 Hgb 14.1 Hct 42.9 MCV 101.6 H MCH 33.4 MCHC 32.9 RDW 13.2 Plt Count 137 MPV 9.6 Sodium 142 Potassium 3.9 Chloride 106 Carbon Dioxide 31 Anion Gap 6 L BUN 15 Creatinine 0.7 Est GFR (CKD-EPI)AfAm 126.64 Est GFR (CKD-EPI)NonAf 109.27 Random Glucose 91 Calcium 9.0 Total Bilirubin 0.4 AST 58 H ALT 32 Alkaline Phosphatase 98 Total Protein 6.6 Albumin 3.4 RPR Titer Nonreactive LABS NOTED. Assessment: 06/20/18 17:48 WITHDRAWAL SYMPTOMS. Plan: CONTINUE DETOX.
[2018-06-20] MEDS: chlordiazePOXIDE HCL 10 MG CAPSULE PO SCH (22:05)
[2018-06-20] MEDS: THIAMINE HCL 100 MG TABLET (FP) PO SCH (22:05)
[2018-06-20] MEDS: traZODone HCL 50 MG TABLET (FP) PO PRN (22:05)
[2018-06-20] MEDS: MELATONIN 5 MG TABLETS PO PRN (22:06)
[2018-06-20] MEDS ORDERED: chlordiazePOXIDE HCL 10 MG CAPSULE PO PRN (23:00)
[2018-06-21] MEDS: chlordiazePOXIDE HCL 10 MG CAPSULE PO SCH ×4 (05:51→22:16)
[2018-06-21] MEDS: PRENATAL VITAMINS W/ FOLIC ACID TABLET (FP) PO SCH (10:21)
--- NOTE | 2018-06-21 15:46 | PN ---
S CIWA - CIWA Score Nausea/Vomitin-Mild Nausea/No Vomiting Muscle Tremors: 2 Anxiety: 2 Agitation: 2 Paroxysmal Sweats: No Perspiration Orientation: 0-Oriented Tacttile Disturbances: 0-None Auditory Disturbances: 0-None Visual Disturbances: 0-None Headache: 0-None Present CIWA-Ar Total Score: 7 BHS Progress Note (SOAP) Subjective: feeling better today discuss risks of alcohol misuse Objective: 06/21/18 15:48 Vital Signs Temperature 96.2 F L 06/21/18 13:45 Pulse Rate 63 06/21/18 13:45 Respiratory Rate 18 06/21/18 13:45 Blood Pressure 117/76 06/21/18 13:45 O2 Sat by Pulse Oximetry (%) Laboratory Last Values WBC 6.9 K/mm3 (4.0-10.0) 06/19/18 07:00 RBC 4.22 M/mm3 (4.00-5.60) 06/19/18 07:00 Hgb 14.1 GM/dL (11.7-16.9) 06/19/18 07:00 Hct 42.9 % (35.4-49) 06/19/18 07:00 MCV 101.6 fl (80-96) H 06/19/18 07:00 MCH 33.4 pg (25.7-33.7) 06/19/18 07:00 MCHC 32.9 g/dl (32.0-35.9) 06/19/18 07:00 RDW 13.2 % (11.9-15.9) 06/19/18 07:00 Plt Count 137 K/MM3 (134-434) 06/19/18 07:00 MPV 9.6 fl (7.5-11.1) 06/19/18 07:00 Sodium 142 mmol/L (136-145) 06/19/18 07:00 Potassium 3.9 mmol/L (3.5-5.1) 06/19/18 07:00 Chloride 106 mmol/L (98-107) 06/19/18 07:00 Carbon Dioxide 31 mmol/L (21-32) 06/19/18 07:00 Anion Gap 6 MMOL/L (8-16) L 06/19/18 07:00 BUN 15 mg/dL (7-18) 06/19/18 07:00 Creatinine 0.7 mg/dL (0.55-1.3) 06/19/18 07:00 Est GFR (CKD-EPI)AfAm 126.64 06/19/18 07:00 Est GFR (CKD-EPI)NonAf 109.27 06/19/18 07:00 Random Glucose 91 mg/dL (74-106) 06/19/18 07:00 Calcium 9.0 mg/dL (8.5-10.1) 06/19/18 07:00 Total Bilirubin 0.4 mg/dL (0.2-1) 06/19/18 07:00 AST 58 U/L (15-37) H 06/19/18 07:00 ALT 32 U/L (13-61) 06/19/18 07:00 Alkaline Phosphatase 98 U/L (45-117) 06/19/18 07:00 Total Protein 6.6 g/dl (6.4-8.2) 06/19/18 07:00 Albumin 3.4 g/dl (3.4-5.0) 06/19/18 07:00 RPR Titer Nonreactive (NONREACTIVE) 06/19/18 07:00 lab noted Assessment: 06/21/18 15:48 withdrawal sx Plan: continue detox
[2018-06-21] MEDS: THIAMINE HCL 100 MG TABLET (FP) PO SCH (21:57)
[2018-06-21] MEDS: traZODone HCL 50 MG TABLET (FP) PO PRN (21:58)
[2018-06-21] MEDS: MELATONIN 5 MG TABLETS PO PRN (21:58)
[2018-06-22] MEDS: PRENATAL VITAMINS W/ FOLIC ACID TABLET (FP) PO SCH (10:16)
[2018-06-22] MEDS: chlordiazePOXIDE HCL 10 MG CAPSULE PO SCH ×2 (10:16→22:16)
--- NOTE | 2018-06-22 16:18 | PN ---
S CIWA - CIWA Score Nausea/Vomitin-No Nausea/No Vomiting Muscle Tremors: 2 Anxiety: 1-Mildly Anxious Agitation: 1-Slight > Activity Paroxysmal Sweats: No Perspiration Orientation: 0-Oriented Tacttile Disturbances: 0-None Auditory Disturbances: 0-None Visual Disturbances: 0-None Headache: 0-None Present CIWA-Ar Total Score: 4 S Progress Note (SOAP) Subjective: received counselor call that aftercare facility is reviewing patient's intake information aftercare [facility] Objective: 06/22/18 16:21 Vital Signs Temperature 96.8 F L 06/22/18 13:16 Pulse Rate 68 06/22/18 13:16 Respiratory Rate 18 06/22/18 13:16 Blood Pressure 119/76 06/22/18 13:16 O2 Sat by Pulse Oximetry (%) Laboratory Last Values WBC 6.9 K/mm3 (4.0-10.0) 06/19/18 07:00 RBC 4.22 M/mm3 (4.00-5.60) 06/19/18 07:00 Hgb 14.1 GM/dL (11.7-16.9) 06/19/18 07:00 Hct 42.9 % (35.4-49) 06/19/18 07:00 MCV 101.6 fl (80-96) H 06/19/18 07:00 MCH 33.4 pg (25.7-33.7) 06/19/18 07:00 MCHC 32.9 g/dl (32.0-35.9) 06/19/18 07:00 RDW 13.2 % (11.9-15.9) 06/19/18 07:00 Plt Count 137 K/MM3 (134-434) 06/19/18 07:00 MPV 9.6 fl (7.5-11.1) 06/19/18 07:00 Sodium 142 mmol/L (136-145) 06/19/18 07:00 Potassium 3.9 mmol/L (3.5-5.1) 06/19/18 07:00 Chloride 106 mmol/L (98-107) 06/19/18 07:00 Carbon Dioxide 31 mmol/L (21-32) 06/19/18 07:00 Anion Gap 6 MMOL/L (8-16) L 06/19/18 07:00 BUN 15 mg/dL (7-18) 06/19/18 07:00 Creatinine 0.7 mg/dL (0.55-1.3) 06/19/18 07:00 Est GFR (CKD-EPI)AfAm 126.64 06/19/18 07:00 Est GFR (CKD-EPI)NonAf 109.27 06/19/18 07:00 Random Glucose 91 mg/dL (74-106) 06/19/18 07:00 Calcium 9.0 mg/dL (8.5-10.1) 06/19/18 07:00 Total Bilirubin 0.4 mg/dL (0.2-1) 06/19/18 07:00 AST 58 U/L (15-37) H 06/19/18 07:00 ALT 32 U/L (13-61) 06/19/18 07:00 Alkaline Phosphatase 98 U/L (45-117) 06/19/18 07:00 Total Protein 6.6 g/dl (6.4-8.2) 06/19/18 07:00 Albumin 3.4 g/dl (3.4-5.0) 06/19/18 07:00 RPR Titer Nonreactive (NONREACTIVE) 06/19/18 07:00 lab noted Assessment: 06/22/18 16:21 alcohol withdrawal sx Plan: continue detox
[2018-06-22] MEDS: THIAMINE HCL 100 MG TABLET (FP) PO SCH (22:15)
[2018-06-22] MEDS: traZODone HCL 50 MG TABLET (FP) PO PRN (22:16)
[2018-06-23 06:44] VITALS: BP 114/71; PULSE 59; TEMP 97.1
== END 2018-06-23 07:03 | disposition home or self-care (01) | DRG 775 ==
LOC: YASAS 14:15 → Y3N 20:27
PROVIDERS: ADMIT Surgery; ATTEND Surgery
PROC: HZ2ZZZZ Detoxification Services for Substance Abuse Treatment (ICD-10-PCS; principal; 2018-06-18)
DX: F10.230 Alcohol dependence with withdrawal, uncomplicated (principal); F10.220 Alcohol dependence with intoxication, uncomplicated; F12.20 Cannabis dependence, uncomplicated; F17.210 Nicotine dependence, cigarettes, uncomplicated; R74.0 Nonspecific elevation of levels of transaminase and lactic acid dehydrogenase [LDH]; R03.0 Elevated blood-pressure reading, without diagnosis of hypertension
CPT/HCPCS: 36415; 80053; 85027; 86593

== ENCOUNTER 2019-02-26 10:07 | Inpatient (IN) | payer OTHER ==
[2019-02-26 10:44] VITALS: BMI 25.9
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
[2019-02-26] MEDS ORDERED: hydrOXYzine PAMOATE 25 MG CAPSULE (FP) PO PRN (13:48)
[2019-02-26] MEDS ORDERED: MAGNESIUM CITRATE 300 ML BOTTLE PO PRN (13:48)
[2019-02-26] MEDS ORDERED: BISMUTH SUBSALICYLATE 262 MG/15 ML BTL PO PRN (13:48)
[2019-02-26] MEDS ORDERED: MENTHOL/PHENOL 1 EACH UD MM PRN (13:48)
[2019-02-26] MEDS ORDERED: IBUPROFEN 400 MG TABLET (FP) PO PRN (13:48)
[2019-02-26] MEDS ORDERED: ACETAMINOPHEN 325 MG TABLET (FP) PO PRN (13:48)
[2019-02-26] MEDS ORDERED: MAGNESIUM HYDROX 2400MG/30ML ORAL SUSPENSION 30 ML CUP PO PRN (13:48)
[2019-02-26] MEDS ORDERED: MAG HYDROX/AL HYDROX/SIMETH 30 ML UNIT-DOSE CUP PO PRN (13:48)
[2019-02-26] MEDS ORDERED: PNEUMOC 13-VAL CONJ-DIP CRM/PF 0.5 ML DISP.SYRIN IM ONE (14:13)
[2019-02-26] MEDS ORDERED: FLU VACCINE QUAD 60 MCG/0.5 ML (MDV 19-20) IM ONE (14:15)
[2019-02-26] MEDS: diazePAM 5 MG TABLET PO PRN (15:11)
[2019-02-26] MEDS: diazePAM 5 MG TABLET PO SCH ×2 (15:11→22:11)
[2019-02-26 17:06] LABS: HEMATOCRIT 50.3 % (35.4-49); HEMOGLOBIN 16.7 GM/dL (11.7-16.9); MCH 34.2 pg (25.7-33.7); MCHC 33.3 g/dl (32.0-35.9); MEAN CELL VOLUME 102.8 fl (80-96); MEAN PLT VOLUME 9.8 fl (7.5-11.1); PLATELET COUNT 166 K/MM3 (134-434); RBC 4.89 M/mm3 (4.00-5.60); RDW 13.8 % (11.9-15.9); WHITE BLOOD COUNT 6.2 K/mm3 (4.0-10.0)
[2019-02-26 17:37] LABS: POTASSIUM 3.8 mmol/L (3.5-5.1)
[2019-02-26 17:38] LABS: ALBUMIN 4.6 g/dl (3.4-5.0); BLOOD UREA NITROGEN 7.6 mg/dL (7-18); CALCIUM 8.8 mg/dL (8.5-10.1); CREATININE 0.7 mg/dL (0.55-1.3); TOT PROT 8.4 g/dl (6.4-8.2)
[2019-02-26] MEDS: THIAMINE HCL 100 MG TABLET (FP) PO SCH (22:11)
[2019-02-27] MEDS: diazePAM 5 MG TABLET PO SCH ×3 (05:30→23:00)
[2019-02-27] MEDS: PRENATAL VITAMINS W/ FOLIC ACID TABLET (FP) PO SCH (10:30)
--- NOTE | 2019-02-27 11:55 | PN ---
S CIWA - CIWA Score Nausea/Vomitin-No Nausea/No Vomiting Muscle Tremors: None Anxiety: 3 Agitation: 0-Normal Activity Paroxysmal Sweats: 3 Orientation: 0-Oriented Tacttile Disturbances: 0-None Auditory Disturbances: 0-None Visual Disturbances: 0-None Headache: 2-Mild CIWA-Ar Total Score: 8 BHS Progress Note (SOAP) Subjective: c/o headache, anxiety, and sweats. Objective: 02/27/19 11:56 Vital Signs 02/27/19 02/27/19 06:38 09:12 Temperature 98.1 F 97.2 F L Pulse Rate 84 96 H Respiratory 18 16 Rate Blood Pressure 141/83 139/93 Laboratory Last Values WBC 6.2 K/mm3 (4.0-10.0) 02/26/19 13:40 RBC 4.89 M/mm3 (4.00-5.60) 02/26/19 13:40 Hgb 16.7 GM/dL (11.7-16.9) 02/26/19 13:40 Hct 50.3 % (35.4-49) H D 02/26/19 13:40 MCV 102.8 fl (80-96) H 02/26/19 13:40 MCH 34.2 pg (25.7-33.7) H 02/26/19 13:40 MCHC 33.3 g/dl (32.0-35.9) 02/26/19 13:40 RDW 13.8 % (11.9-15.9) 02/26/19 13:40 Plt Count 166 K/MM3 (134-434) D 02/26/19 13:40 MPV 9.8 fl (7.5-11.1) 02/26/19 13:40 Sodium 141 mmol/L (136-145) 02/26/19 13:40 Potassium 3.8 mmol/L (3.5-5.1) 02/26/19 13:40 Chloride 106 mmol/L (98-107) 02/26/19 13:40 Carbon Dioxide 28 mmol/L (21-32) 02/26/19 13:40 Anion Gap 7 MMOL/L (8-16) L 02/26/19 13:40 BUN 7.6 mg/dL (7-18) 02/26/19 13:40 Creatinine 0.7 mg/dL (0.55-1.3) 02/26/19 13:40 Est GFR (CKD-EPI)AfAm 125.75 02/26/19 13:40 Est GFR (CKD-EPI)NonAf 108.50 02/26/19 13:40 Random Glucose 103 mg/dL (74-106) 02/26/19 13:40 Calcium 8.8 mg/dL (8.5-10.1) 02/26/19 13:40 Total Bilirubin 1.0 mg/dL (0.2-1) 02/26/19 13:40 AST 93 U/L (15-37) H 02/26/19 13:40 ALT 43 U/L (13-61) 02/26/19 13:40 Alkaline Phosphatase 108 U/L (45-117) 02/26/19 13:40 Total Protein 8.4 g/dl (6.4-8.2) H 02/26/19 13:40 Albumin 4.6 g/dl (3.4-5.0) 02/26/19 13:40 RPR Titer Nonreactive (NONREACTIVE) 02/26/19 13:40 Labs noted. Assessment: 02/27/19 11:57 AOX3, in no acute respiratory distress. Full ROM, ambulating in the unit. Withdrawal symptoms. Plan: continue detox.
[2019-02-27] MEDS ORDERED: PNEUMOCOCCAL 23 VACCINE 0.5 ML VIAL IM ONE (12:00)
[2019-02-27] MEDS ORDERED: PNEUMOC 13-VAL CONJ-DIP CRM/PF 0.5 ML DISP.SYRIN IM ONE (12:00)
[2019-02-27] MEDS ORDERED: FLU VACCINE QUAD 60 MCG/0.5 ML (MDV 19-20) IM ONE (12:00)
[2019-02-27] MEDS: THIAMINE HCL 100 MG TABLET (FP) PO SCH (23:00)
[2019-02-27] MEDS: MELATONIN 5 MG TABLETS PO PRN (23:00)
[2019-02-28] MEDS: diazePAM 5 MG TABLET PO SCH ×2 (06:06→17:56)
[2019-02-28] MEDS: PRENATAL VITAMINS W/ FOLIC ACID TABLET (FP) PO SCH (10:09)
[2019-02-28] MEDS: diazePAM 5 MG TABLET PO PRN ×2 (10:10→22:11)
--- NOTE | 2019-02-28 12:04 | PN ---
S CIWA - CIWA Score Nausea/Vomitin-No Nausea/No Vomiting Muscle Tremors: 1-None Visible, but [place] Anxiety: 1-Mildly Anxious Agitation: 0-Normal Activity Paroxysmal Sweats: 1-Minimal Palms Moist Orientation: 0-Oriented Tacttile Disturbances: 0-None Auditory Disturbances: 0-None Visual Disturbances: 1-Very Mild Sensitivity Headache: 0-None Present CIWA-Ar Total Score: 4 BHS Progress Note (SOAP) Subjective: 53 years old male admitted on 02/26/19 for alcohol withdrawal sx management treating with valium detox regimen feeling better today less tremor mild anxiety slept through the night Objective: 02/28/19 12:07 Vital Signs Temperature 96.9 F L 02/28/19 09:06 Pulse Rate 86 02/28/19 09:06 Respiratory Rate 16 02/28/19 09:06 Blood Pressure 123/80 02/28/19 09:06 O2 Sat by Pulse Oximetry (%) Laboratory Last Values WBC 6.2 K/mm3 (4.0-10.0) 02/26/19 13:40 RBC 4.89 M/mm3 (4.00-5.60) 02/26/19 13:40 Hgb 16.7 GM/dL (11.7-16.9) 02/26/19 13:40 Hct 50.3 % (35.4-49) H D 02/26/19 13:40 MCV 102.8 fl (80-96) H 02/26/19 13:40 MCH 34.2 pg (25.7-33.7) H 02/26/19 13:40 MCHC 33.3 g/dl (32.0-35.9) 02/26/19 13:40 RDW 13.8 % (11.9-15.9) 02/26/19 13:40 Plt Count 166 K/MM3 (134-434) D 02/26/19 13:40 MPV 9.8 fl (7.5-11.1) 02/26/19 13:40 Sodium 141 mmol/L (136-145) 02/26/19 13:40 Potassium 3.8 mmol/L (3.5-5.1) 02/26/19 13:40 Chloride 106 mmol/L (98-107) 02/26/19 13:40 Carbon Dioxide 28 mmol/L (21-32) 02/26/19 13:40 Anion Gap 7 MMOL/L (8-16) L 02/26/19 13:40 BUN 7.6 mg/dL (7-18) 02/26/19 13:40 Creatinine 0.7 mg/dL (0.55-1.3) 02/26/19 13:40 Est GFR (CKD-EPI)AfAm 125.75 02/26/19 13:40 Est GFR (CKD-EPI)NonAf 108.50 02/26/19 13:40 Random Glucose 103 mg/dL (74-106) 02/26/19 13:40 Calcium 8.8 mg/dL (8.5-10.1) 02/26/19 13:40 Total Bilirubin 1.0 mg/dL (0.2-1) 02/26/19 13:40 AST 93 U/L (15-37) H 02/26/19 13:40 ALT 43 U/L (13-61) 02/26/19 13:40 Alkaline Phosphatase 108 U/L (45-117) 02/26/19 13:40 Total Protein 8.4 g/dl (6.4-8.2) H 02/26/19 13:40 Albumin 4.6 g/dl (3.4-5.0) 02/26/19 13:40 RPR Titer Nonreactive (NONREACTIVE) 02/26/19 13:40 HIV 1&2 Antibody Screen Negative 02/27/19 05:50 HIV P24 Antigen Negative 02/27/19 05:50 lab noted Assessment: 02/28/19 12:08 alcohol withdrawal Plan: valium regimen
[2019-02-28] MEDS: THIAMINE HCL 100 MG TABLET (FP) PO SCH (22:11)
[2019-03-01] MEDS ORDERED: diazePAM 5 MG TABLET PO ONE (06:00)
--- NOTE | 2019-03-01 09:46 | PN ---
[facility] CIWA - CIWA Score Nausea/Vomitin-No Nausea/No Vomiting Muscle Tremors: 1-None Visible, but [place] Anxiety: 1-Mildly Anxious Agitation: 0-Normal Activity Paroxysmal Sweats: No Perspiration Orientation: 0-Oriented Tacttile Disturbances: 0-None Auditory Disturbances: 0-None Visual Disturbances: 0-None Headache: 0-None Present CIWA-Ar Total Score: 2 BHS Progress Note (SOAP) Subjective: 53 years old male admitted on 02/26/19 for alcohol withdrawal sx management treating with valium detox regimen feeling ok today determines to maintain sober through recovery process Objective: 03/01/19 09:46 Vital Signs Temperature 95.9 F L 03/01/19 09:22 Pulse Rate 88 03/01/19 09:22 Respiratory Rate 18 03/01/19 09:22 Blood Pressure 117/79 03/01/19 09:22 O2 Sat by Pulse Oximetry (%) Laboratory Last Values WBC 6.2 K/mm3 (4.0-10.0) 02/26/19 13:40 RBC 4.89 M/mm3 (4.00-5.60) 02/26/19 13:40 Hgb 16.7 GM/dL (11.7-16.9) 02/26/19 13:40 Hct 50.3 % (35.4-49) H D 02/26/19 13:40 MCV 102.8 fl (80-96) H 02/26/19 13:40 MCH 34.2 pg (25.7-33.7) H 02/26/19 13:40 MCHC 33.3 g/dl (32.0-35.9) 02/26/19 13:40 RDW 13.8 % (11.9-15.9) 02/26/19 13:40 Plt Count 166 K/MM3 (134-434) D 02/26/19 13:40 MPV 9.8 fl (7.5-11.1) 02/26/19 13:40 Sodium 141 mmol/L (136-145) 02/26/19 13:40 Potassium 3.8 mmol/L (3.5-5.1) 02/26/19 13:40 Chloride 106 mmol/L (98-107) 02/26/19 13:40 Carbon Dioxide 28 mmol/L (21-32) 02/26/19 13:40 Anion Gap 7 MMOL/L (8-16) L 02/26/19 13:40 BUN 7.6 mg/dL (7-18) 02/26/19 13:40 Creatinine 0.7 mg/dL (0.55-1.3) 02/26/19 13:40 Est GFR (CKD-EPI)AfAm 125.75 02/26/19 13:40 Est GFR (CKD-EPI)NonAf 108.50 02/26/19 13:40 Random Glucose 103 mg/dL (74-106) 02/26/19 13:40 Calcium 8.8 mg/dL (8.5-10.1) 02/26/19 13:40 Total Bilirubin 1.0 mg/dL (0.2-1) 02/26/19 13:40 AST 93 U/L (15-37) H 02/26/19 13:40 ALT 43 U/L (13-61) 02/26/19 13:40 Alkaline Phosphatase 108 U/L (45-117) 02/26/19 13:40 Total Protein 8.4 g/dl (6.4-8.2) H 02/26/19 13:40 Albumin 4.6 g/dl (3.4-5.0) 02/26/19 13:40 RPR Titer Nonreactive (NONREACTIVE) 02/26/19 13:40 HIV 1&2 Antibody Screen Negative 02/27/19 05:50 HIV P24 Antigen Negative 02/27/19 05:50 lab noted Assessment: 03/01/19 09:47 alcohol withdrawal Plan: valium regimen
[2019-03-01] MEDS: PRENATAL VITAMINS W/ FOLIC ACID TABLET (FP) PO SCH (10:20)
[2019-03-01] MEDS: THIAMINE HCL 100 MG TABLET (FP) PO SCH (22:09)
[2019-03-01] MEDS: MELATONIN 5 MG TABLETS PO PRN (22:09)
[2019-03-01] MEDS: ACETAMINOPHEN 325 MG TABLET (FP) PO PRN (22:10)
[2019-03-02] MEDS: ACETAMINOPHEN 325 MG TABLET (FP) PO PRN (05:14)
[2019-03-02 09:09] VITALS: BP 140/85; PULSE 72; TEMP 97.9
[2019-03-02] MEDS ORDERED: BENZOCAINE 20 % GEL TUBE MM PRN (09:25)
--- NOTE | 2019-03-02 14:13 | DS ---
[facility] Detox Discharge Summary Admission Date: 02/26/19 Discharge Date: 03/02/19 - History Present History: Alcohol Dependence Additional Comments: 53 years old male admitted on 02/26/19 for alcohol withdrawal sx management treated with valium detox regimen patient has completed the valiuim regimen and tolerated well alert oriented x 3 respiratory clear lungs bilaterally on auscultation extremities full range of motion skin warm and dry - Physical Exam Results Vital Signs: Vital Signs Temperature 97.9 F 03/02/19 09:09 Pulse Rate 72 03/02/19 09:09 Respiratory Rate 18 03/02/19 09:09 Blood Pressure 140/85 03/02/19 09:09 O2 Sat by Pulse Oximetry (%) Pertinent Admission Physical Exam Findings: alcohol withdrawal Laboratory Last Values WBC 6.2 K/mm3 (4.0-10.0) 02/26/19 13:40 RBC 4.89 M/mm3 (4.00-5.60) 02/26/19 13:40 Hgb 16.7 GM/dL (11.7-16.9) 02/26/19 13:40 Hct 50.3 % (35.4-49) H D 02/26/19 13:40 MCV 102.8 fl (80-96) H 02/26/19 13:40 MCH 34.2 pg (25.7-33.7) H 02/26/19 13:40 MCHC 33.3 g/dl (32.0-35.9) 02/26/19 13:40 RDW 13.8 % (11.9-15.9) 02/26/19 13:40 Plt Count 166 K/MM3 (134-434) D 02/26/19 13:40 MPV 9.8 fl (7.5-11.1) 02/26/19 13:40 Sodium 141 mmol/L (136-145) 02/26/19 13:40 Potassium 3.8 mmol/L (3.5-5.1) 02/26/19 13:40 Chloride 106 mmol/L (98-107) 02/26/19 13:40 Carbon Dioxide 28 mmol/L (21-32) 02/26/19 13:40 Anion Gap 7 MMOL/L (8-16) L 02/26/19 13:40 BUN 7.6 mg/dL (7-18) 02/26/19 13:40 Creatinine 0.7 mg/dL (0.55-1.3) 02/26/19 13:40 Est GFR (CKD-EPI)AfAm 125.75 02/26/19 13:40 Est GFR (CKD-EPI)NonAf 108.50 02/26/19 13:40 Random Glucose 103 mg/dL (74-106) 02/26/19 13:40 Calcium 8.8 mg/dL (8.5-10.1) 02/26/19 13:40 Total Bilirubin 1.0 mg/dL (0.2-1) 02/26/19 13:40 AST 93 U/L (15-37) H 02/26/19 13:40 ALT 43 U/L (13-61) 02/26/19 13:40 Alkaline Phosphatase 108 U/L (45-117) 02/26/19 13:40 Total Protein 8.4 g/dl (6.4-8.2) H 02/26/19 13:40 Albumin 4.6 g/dl (3.4-5.0) 02/26/19 13:40 RPR Titer Nonreactive (NONREACTIVE) 02/26/19 13:40 HIV 1&2 Antibody Screen Negative 02/27/19 05:50 HIV P24 Antigen Negative 02/27/19 05:50 lab noted - Treatment Hospital Course: Detox Protocol Followed, Detoxed Safely, Responded well, Discharged Condition Good, Rehab Referral Accepted Patient has Accepted a Rehab Referral to: [facility] - Medication Discharge Medications: Ambulatory Orders NK [No Known Home Medication] 02/13/16 - Diagnosis (1) Alcohol dependence with uncomplicated withdrawal Status: Acute (2) Nicotine dependence Status: Acute - AMA Did Patient Leave Against Medical Advice: No CIWA Score - CIWA Score Nausea/Vomitin-No Nausea/No Vomiting Muscle Tremors: 1-None Visible, but [place] Anxiety: 0-No Anxiety, at Ease Agitation: 0-Normal Activity Paroxysmal Sweats: No Perspiration Orientation: 0-Oriented Tacttile Disturbances: 0-None Auditory Disturbances: 0-None Visual Disturbances: 0-None Headache: 0-None Present CIWA-Ar Total Score: 1
== END 2019-03-02 12:02 | disposition home or self-care (01) | DRG 775 ==
LOC: YASAS 10:07 → Y3N 14:27
PROVIDERS: ADMIT Allergy & Immunology; ATTEND Allergy & Immunology
PROC: HZ2ZZZZ Detoxification Services for Substance Abuse Treatment (ICD-10-PCS; principal; 2019-02-26)
DX: F10.230 Alcohol dependence with withdrawal, uncomplicated (principal); F17.210 Nicotine dependence, cigarettes, uncomplicated; Z87.820 Personal history of traumatic brain injury; Z87.828 Personal history of other (healed) physical injury and trauma
CPT/HCPCS: 36415; 80053; 85027; 86593; 87389

== ENCOUNTER 2019-10-20 08:28 | Inpatient (IN) | payer OTHER ==
--- NOTE | 2019-10-20 08:44 | BHS.RME ---
Substance Use & Tx History - Substance Use History Alcohol Substance amount: 1 quart Frequency of use: Daily Substance route: Oral Date of Last Use: 10/20/19 Marijuana/Hashish Substance amount: 1 joint Frequency of use: Daily Substance route: Smoking Date of Last Use: 10/20/19 Nicotine Substance amount: 1 pack Frequency of use: Daily Substance route: Smoking Date of Last Use: 10/20/19 Physical/Psych/Mental Status - Behavior General Behavior: Increased activity (restlessness, agitation) Eye Contact: Normal - Cooperativeness Cooperativeness: Cooperative - Thinking Thought Processes: Tight, Logical, Goal Directed - Physical Health Problems Is patient presently having any pain?: No Does patient presently have any injuries (include location): No Does patient currently have a fever: No Is patient : No CIWA Nausea/Vomitin-No Nausea/No Vomiting Muscle Tremors: 1-None Visible, but [place] Anxiety: 3 Agitation: 3 Paroxysmal Sweats: No Perspiration Orientation: 1-Uncertain about Date Tacttile Disturbances: 0-None Auditory Disturbances: 0-None Visual Disturbances: 0-None Headache: 0-None Present (not yet in withdrawals as he just drank prior to coming in. FIOR=.[id number]) CIWA-Ar Total Score: 8
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
[2019-10-20 09:13] VITALS: BMI 27.6
[2019-10-20] MEDS ORDERED: MAGNESIUM HYDROX 2400MG/30ML ORAL SUSPENSION 30 ML CUP PO PRN (09:13)
[2019-10-20] MEDS ORDERED: METHOCARBAMOL 500 MG TABLET PO PRN (09:13)
[2019-10-20] MEDS ORDERED: MAG HYDROX/AL HYDROX/SIMETH 30 ML UNIT-DOSE CUP PO PRN (09:13)
[2019-10-20] MEDS ORDERED: MAGNESIUM CITRATE 300 ML BOTTLE PO PRN (09:13)
[2019-10-20] MEDS ORDERED: chlordiazePOXIDE HCL 25 MG CAPSULE PO PRN (09:13)
[2019-10-20] MEDS ORDERED: NICOTINE POLACRILEX 2 MG GUM BUC PRN (09:13)
[2019-10-20] MEDS ORDERED: IBUPROFEN 400 MG TABLET (FP) PO PRN (09:13)
[2019-10-20] MEDS ORDERED: MENTHOL/PHENOL 1 EACH UD MM PRN (09:13)
[2019-10-20] MEDS ORDERED: ACETAMINOPHEN 325 MG TABLET (FP) PO PRN ×2 (09:13)
[2019-10-20] MEDS ORDERED: ONDANSETRON *ODT* 4 MG TABLET SL PRN (09:13)
[2019-10-20] MEDS ORDERED: BISMUTH SUBSALICYLATE 524 MG/30 ML UD PO PRN (09:13)
[2019-10-20] MEDS: hydrOXYzine PAMOATE 25 MG CAPSULE (FP) PO SCH ×4 (11:09→23:25)
[2019-10-20] MEDS: PRENATAL VITAMINS W/ FOLIC ACID TABLET (FP) PO SCH (11:09)
[2019-10-20] MEDS: chlordiazePOXIDE HCL 25 MG CAPSULE PO SCH ×3 (11:09→22:24)
[2019-10-20] MEDS: NICOTINE 7 MG/24 HOURS TOPICAL PATCH TD SCH (11:10)
--- NOTE | 2019-10-20 13:32 | EKG ---
Test Reason : Blood Pressure : / mmHG Vent. Rate : 082 BPM Atrial Rate : 082 BPM P-R Int : 140 ms QRS Dur : 110 ms QT Int : 396 ms P-R-T Axes : 058 042 043 degrees QTc Int : 462 ms NORMAL SINUS RHYTHM MINIMAL VOLTAGE CRITERIA FOR LVH, MAY BE NORMAL VARIANT BORDERLINE ECG Confirmed by MD JORGE, AVELINO ([id number]) on 10/20/2019 1:31:46 PM Referred By: Confirmed By:AVELINO PATEL MD
[2019-10-20 16:23] LABS: HEMATOCRIT 44.3 % (35.4-49); HEMOGLOBIN 14.6 GM/dL (11.7-16.9); MCH 32.8 pg (25.7-33.7); MCHC 32.9 g/dl (32.0-35.9); MEAN PLT VOLUME 9.9 fl (7.5-11.1); PLATELET COUNT 132 K/MM3 (134-434); RBC 4.43 M/mm3 (4.00-5.60); RDW 13.8 % (11.9-15.9); WHITE BLOOD COUNT 7.3 K/mm3 (4.0-10.0)
[2019-10-20 16:29] LABS: ALBUMIN 3.8 g/dl (3.4-5.0); BILIRUBIN,TOTAL 0.4 mg/dL (0.2-1); BLOOD UREA NITROGEN 11.1 mg/dL (7-18); CALCIUM 7.9 mg/dL (8.5-10.1); CREATININE 0.9 mg/dL (0.55-1.3); TOT PROT 7.7 g/dl (6.4-8.2)
[2019-10-20 16:35] LABS: POTASSIUM 2.9 mmol/L (3.5-5.1)
[2019-10-20] MEDS ORDERED: POTASSIUM CHLORIDE TABS 20 MEQ TABLET.ER (FP) PO ONE (17:03)
[2019-10-20] MEDS: POTASSIUM CHLORIDE TABS 20 MEQ TABLET.ER (FP) PO SCH (22:24)
[2019-10-20] MEDS: THIAMINE HCL 100 MG TABLET (FP) PO SCH (22:25)
[2019-10-20] MEDS: MELATONIN 5 MG TABLETS PO SCH (22:25)
[2019-10-21] MEDS: chlordiazePOXIDE HCL 25 MG CAPSULE PO SCH ×4 (05:30→22:23)
[2019-10-21] MEDS: hydrOXYzine PAMOATE 25 MG CAPSULE (FP) PO SCH ×2 (05:30→10:26)
[2019-10-21] MEDS: PRENATAL VITAMINS W/ FOLIC ACID TABLET (FP) PO SCH (10:26)
[2019-10-21] MEDS: POTASSIUM CHLORIDE TABS 20 MEQ TABLET.ER (FP) PO SCH (10:26)
[2019-10-21] MEDS: NICOTINE 7 MG/24 HOURS TOPICAL PATCH TD SCH (10:28)
[2019-10-21 10:57] LABS: HEMOGLOBIN 14.4 GM/dL (11.7-16.9); MCHC 33.4 g/dl (32.0-35.9); MEAN CELL VOLUME 98.7 fl (80-96); MEAN PLT VOLUME 9.8 fl (7.5-11.1); PLATELET COUNT 124 K/MM3 (134-434); RBC 4.36 M/mm3 (4.00-5.60); RDW 13.5 % (11.9-15.9); WHITE BLOOD COUNT 7.1 K/mm3 (4.0-10.0)
[2019-10-21] MEDS ORDERED: hydrOXYzine PAMOATE 25 MG CAPSULE (FP) PO PRN (12:02)
--- NOTE | 2019-10-21 12:12 | PN ---
[facility] CIWA - CIWA Score Nausea/Vomitin-No Nausea/No Vomiting Muscle Tremors: 2 Anxiety: 1-Mildly Anxious Agitation: 1-Slight > Activity Paroxysmal Sweats: 1-Minimal Palms Moist Orientation: 0-Oriented Tacttile Disturbances: 0-None Auditory Disturbances: 0-None Visual Disturbances: 0-None Headache: 0-None Present CIWA-Ar Total Score: 5 BHS Progress Note (SOAP) Subjective: sweats shakes Objective: 10/21/19 12:10 Vital Signs Temperature 97.5 F L 10/21/19 09:25 Pulse Rate 94 H 10/21/19 09:25 Respiratory Rate 19 10/21/19 09:25 Blood Pressure 139/92 10/21/19 09:25 O2 Sat by Pulse Oximetry (%) 97 10/21/19 09:25 Laboratory Tests 10/20/19 10/20/19 10/20/19 09:25 09:25 09:25 WBC 7.3 RBC 4.43 Hgb 14.6 Hct 44.3 MCV 100.0 H MCH 32.8 MCHC 32.9 RDW 13.8 Plt Count 132 L D MPV 9.9 Sodium 140 Potassium 2.9 L* Chloride 101 Carbon Dioxide 31 Anion Gap 8 BUN 11.1 Creatinine 0.9 Est GFR (CKD-EPI)AfAm 113.41 Est GFR (CKD-EPI)NonAf 97.85 Random Glucose 199 H Calcium 7.9 L Total Bilirubin 0.4 AST 86 H ALT 57 Alkaline Phosphatase 93 Total Protein 7.7 Albumin 3.8 Syphilis Serology Non-reactive COVID-19 (URI) 10/20/19 10/21/19 11:00 08:45 WBC 7.1 RBC 4.36 Hgb 14.4 Hct 43.0 MCV 98.7 H MCH 33.0 MCHC 33.4 RDW 13.5 Plt Count 124 L MPV 9.8 Sodium Potassium Chloride Carbon Dioxide Anion Gap BUN Creatinine Est GFR (CKD-EPI)AfAm Est GFR (CKD-EPI)NonAf Random Glucose Calcium Total Bilirubin AST ALT Alkaline Phosphatase Total Protein Albumin Syphilis Serology COVID-19 (URI) Not detected labs noted low potassium 2.9 noted kdur d/c kcl 40meq q4hrs x 3 doses ordered labs repeated ordered Assessment: 10/21/19 12:11 withdrawals Plan: continue detox f/u repeated labs ordered for tomorrow.
[2019-10-21] MEDS: POTASSIUM CHLORIDE ORAL LIQUID 20 MEQ/15 ML PO SCH ×3 (14:19→22:23)
[2019-10-21] MEDS: THIAMINE HCL 100 MG TABLET (FP) PO SCH (22:23)
[2019-10-21] MEDS: MELATONIN 5 MG TABLETS PO SCH (22:23)
[2019-10-22] MEDS: chlordiazePOXIDE HCL 25 MG CAPSULE PO SCH ×4 (05:27→22:36)
[2019-10-22 10:39] LABS: BASO % 0.6 % (0-2.0); EOS % 6.1 % (0-4.5); HEMATOCRIT 43.2 % (35.4-49); HEMOGLOBIN 14.1 GM/dL (11.7-16.9); LYMPH % 35.9 % (8-40); MCH 32.8 pg (25.7-33.7); MCHC 32.7 g/dl (32.0-35.9); MEAN CELL VOLUME 100.1 fl (80-96); MEAN PLT VOLUME 10.2 fl (7.5-11.1); MONO % 9.3 % (3.8-10.2); NEUT % 48.1 % (42.8-82.8); PLATELET COUNT 127 K/MM3 (134-434); RBC 4.31 M/mm3 (4.00-5.60); RDW 13.7 % (11.9-15.9); WHITE BLOOD COUNT 6.2 K/mm3 (4.0-10.0)
[2019-10-22] MEDS: PRENATAL VITAMINS W/ FOLIC ACID TABLET (FP) PO SCH (10:40)
[2019-10-22] MEDS: NICOTINE 7 MG/24 HOURS TOPICAL PATCH TD SCH (10:40)
[2019-10-22 10:58] LABS: ALBUMIN 3.4 g/dl (3.4-5.0); BILIRUBIN,TOTAL 0.3 mg/dL (0.2-1); BLOOD UREA NITROGEN 8.2 mg/dL (7-18); CALCIUM 9.2 mg/dL (8.5-10.1); CREATININE 0.6 mg/dL (0.55-1.3); POTASSIUM 4.4 mmol/L (3.5-5.1); TOT PROT 6.9 g/dl (6.4-8.2)
--- NOTE | 2019-10-22 14:19 | PN ---
S CIWA - CIWA Score Nausea/Vomitin-Mild Nausea/No Vomiting Muscle Tremors: 3 Anxiety: 2 Agitation: 2 Paroxysmal Sweats: No Perspiration Orientation: 0-Oriented Tacttile Disturbances: 1-Very Mild Itch/Numbness Auditory Disturbances: 0-None Visual Disturbances: 0-None Headache: 2-Mild CIWA-Ar Total Score: 11 S Progress Note (SOAP) Subjective: alert,irritable,anxious,interrupted sleep,tremor,aching pain,nausea,no vomiting Objective: 10/22/19 14:18 Vital Signs Temperature 97.2 F L 10/22/19 13:05 Pulse Rate 58 L 10/22/19 13:05 Respiratory Rate 18 10/22/19 13:05 Blood Pressure 111/68 10/22/19 13:05 O2 Sat by Pulse Oximetry (%) 98 10/22/19 13:05 10/22/19 14:18 Laboratory Last Values WBC 6.2 K/mm3 (4.0-10.0) 10/22/19 08:10 RBC 4.31 M/mm3 (4.00-5.60) 10/22/19 08:10 Hgb 14.1 GM/dL (11.7-16.9) 10/22/19 08:10 Hct 43.2 % (35.4-49) 10/22/19 08:10 MCV 100.1 fl (80-96) H 10/22/19 08:10 MCH 32.8 pg (25.7-33.7) 10/22/19 08:10 MCHC 32.7 g/dl (32.0-35.9) 10/22/19 08:10 RDW 13.7 % (11.9-15.9) 10/22/19 08:10 Plt Count 127 K/MM3 (134-434) L 10/22/19 08:10 MPV 10.2 fl (7.5-11.1) 10/22/19 08:10 Absolute Neuts (auto) 3.0 K/mm3 (1.5-8.0) 10/22/19 08:10 Neutrophils % 48.1 % (42.8-82.8) D 10/22/19 08:10 Lymphocytes % 35.9 % (8-40) D 10/22/19 08:10 Monocytes % 9.3 % (3.8-10.2) 10/22/19 08:10 Eosinophils % 6.1 % (0-4.5) H D 10/22/19 08:10 Basophils % 0.6 % (0-2.0) 10/22/19 08:10 Nucleated RBC % 0 % (0-0) 10/22/19 08:10 Sodium 136 mmol/L (136-145) 10/22/19 08:10 Potassium 4.4 mmol/L (3.5-5.1) 10/22/19 08:10 Chloride 103 mmol/L (98-107) 10/22/19 08:10 Carbon Dioxide 29 mmol/L (21-32) 10/22/19 08:10 Anion Gap 5 MMOL/L (8-16) L 10/22/19 08:10 BUN 8.2 mg/dL (7-18) 10/22/19 08:10 Creatinine 0.6 mg/dL (0.55-1.3) 10/22/19 08:10 Est GFR (CKD-EPI)AfAm 133.98 10/22/19 08:10 Est GFR (CKD-EPI)NonAf 115.60 10/22/19 08:10 Random Glucose 106 mg/dL (74-106) 10/22/19 08:10 Calcium 9.2 mg/dL (8.5-10.1) 10/22/19 08:10 Total Bilirubin 0.3 mg/dL (0.2-1) 10/22/19 08:10 AST 54 U/L (15-37) H 10/22/19 08:10 ALT 42 U/L (13-61) 10/22/19 08:10 Alkaline Phosphatase 103 U/L (45-117) 10/22/19 08:10 Total Protein 6.9 g/dl (6.4-8.2) 10/22/19 08:10 Albumin 3.4 g/dl (3.4-5.0) 10/22/19 08:10 Syphilis Serology Non-reactive (NONREACTIVE) 10/20/19 09:25 COVID-19 (URI) Not detected (Not Detected) 10/20/19 11:00 Assessment: 10/22/19 14:19 withdrawal symptom Plan: continue detox librium regimen
[2019-10-22] MEDS: MELATONIN 5 MG TABLETS PO SCH (22:38)
[2019-10-22] MEDS: THIAMINE HCL 100 MG TABLET (FP) PO SCH (22:38)
[2019-10-23] MEDS ORDERED: chlordiazePOXIDE HCL 10 MG CAPSULE PO PRN
[2019-10-23] MEDS: chlordiazePOXIDE HCL 10 MG CAPSULE PO SCH ×4 (05:15→22:14)
[2019-10-23] MEDS: NICOTINE 7 MG/24 HOURS TOPICAL PATCH TD SCH (11:01)
[2019-10-23] MEDS: PRENATAL VITAMINS W/ FOLIC ACID TABLET (FP) PO SCH (11:01)
--- NOTE | 2019-10-23 16:59 | PN ---
S CIWA - CIWA Score Nausea/Vomitin-No Nausea/No Vomiting Muscle Tremors: 2 Anxiety: 1-Mildly Anxious Agitation: 2 Paroxysmal Sweats: 2 Orientation: 0-Oriented Tacttile Disturbances: 0-None Auditory Disturbances: 0-None Visual Disturbances: 0-None Headache: 0-None Present CIWA-Ar Total Score: 7 BHS Progress Note (SOAP) Subjective: Restless, Sweating (mild). Patient reports That Current withdrawal Detox Symptoms in General Are Subsiding in Severity. Objective: Patient A & O X 3, Observed Ambulating on Detox Unit Unassisted. In No Acute Distress. 10/23/19 16:57 Vital Signs Temperature 98.4 F 10/23/19 12:45 Pulse Rate 90 10/23/19 12:45 Respiratory Rate 18 10/23/19 12:45 Blood Pressure 128/78 10/23/19 12:45 O2 Sat by Pulse Oximetry (%) 97 10/23/19 12:45 Laboratory Tests 10/20/19 10/20/19 10/20/19 09:25 09:25 09:25 WBC 7.3 RBC 4.43 Hgb 14.6 Hct 44.3 MCV 100.0 H MCH 32.8 MCHC 32.9 RDW 13.8 Plt Count 132 L D MPV 9.9 Absolute Neuts (auto) Neutrophils % Lymphocytes % Monocytes % Eosinophils % Basophils % Nucleated RBC % Sodium 140 Potassium 2.9 L* Chloride 101 Carbon Dioxide 31 Anion Gap 8 BUN 11.1 Creatinine 0.9 Est GFR (CKD-EPI)AfAm 113.41 Est GFR (CKD-EPI)NonAf 97.85 Random Glucose 199 H Calcium 7.9 L Total Bilirubin 0.4 AST 86 H ALT 57 Alkaline Phosphatase 93 Total Protein 7.7 Albumin 3.8 Syphilis Serology Non-reactive COVID-19 (URI) 10/20/19 10/21/19 10/22/19 11:00 08:45 08:10 WBC 7.1 6.2 RBC 4.36 4.31 Hgb 14.4 14.1 Hct 43.0 43.2 MCV 98.7 H 100.1 H MCH 33.0 32.8 MCHC 33.4 32.7 RDW 13.5 13.7 Plt Count 124 L 127 L MPV 9.8 10.2 Absolute Neuts (auto) 3.0 Neutrophils % 48.1 D Lymphocytes % 35.9 D Monocytes % 9.3 Eosinophils % 6.1 H D Basophils % 0.6 Nucleated RBC % 0 Sodium Potassium Chloride Carbon Dioxide Anion Gap BUN Creatinine Est GFR (CKD-EPI)AfAm Est GFR (CKD-EPI)NonAf Random Glucose Calcium Total Bilirubin AST ALT Alkaline Phosphatase Total Protein Albumin Syphilis Serology COVID-19 (URI) Not detected 10/22/19 08:10 WBC RBC Hgb Hct MCV MCH MCHC RDW Plt Count MPV Absolute Neuts (auto) Neutrophils % Lymphocytes % Monocytes % Eosinophils % Basophils % Nucleated RBC % Sodium 136 Potassium 4.4 Chloride 103 Carbon Dioxide 29 Anion Gap 5 L BUN 8.2 Creatinine 0.6 Est GFR (CKD-EPI)AfAm 133.98 Est GFR (CKD-EPI)NonAf 115.60 Random Glucose 106 Calcium 9.2 Total Bilirubin 0.3 AST 54 H ALT 42 Alkaline Phosphatase 103 Total Protein 6.9 Albumin 3.4 Syphilis Serology COVID-19 (URI) Lab Results noted. Assessment: 10/23/19 16:58 WITHDRAWAL SYMPTOMS. Plan: Continue Detox. Increase Daily Oral Water Intake.
[2019-10-23] MEDS: THIAMINE HCL 100 MG TABLET (FP) PO SCH (22:14)
[2019-10-23] MEDS: MELATONIN 5 MG TABLETS PO SCH (22:15)
[2019-10-24] MEDS: chlordiazePOXIDE HCL 10 MG CAPSULE PO SCH ×2 (05:42→18:36)
[2019-10-24] MEDS: NICOTINE 7 MG/24 HOURS TOPICAL PATCH TD SCH (10:29)
[2019-10-24] MEDS: PRENATAL VITAMINS W/ FOLIC ACID TABLET (FP) PO SCH (10:29)
--- NOTE | 2019-10-24 17:20 | PN ---
S CIWA - CIWA Score Nausea/Vomitin-No Nausea/No Vomiting Muscle Tremors: None Anxiety: 2 Agitation: 2 Paroxysmal Sweats: No Perspiration Orientation: 0-Oriented Tacttile Disturbances: 0-None Auditory Disturbances: 0-None Visual Disturbances: 0-None Headache: 0-None Present CIWA-Ar Total Score: 4 BHS Progress Note (SOAP) Subjective: Feels ok Objective: 10/24/19 17:16 Last Vital Signs Temp Pulse Resp BP Pulse Ox 97.1 F L 86 18 124/78 98 10/24/19 12:54 10/24/19 12:54 10/24/19 12:54 10/24/19 12:54 10/24/19 05:28 Laboratory Tests 10/20/19 10/20/19 10/20/19 09:25 09:25 09:25 WBC 7.3 RBC 4.43 Hgb 14.6 Hct 44.3 MCV 100.0 H MCH 32.8 MCHC 32.9 RDW 13.8 Plt Count 132 L D MPV 9.9 Absolute Neuts (auto) Neutrophils % Lymphocytes % Monocytes % Eosinophils % Basophils % Nucleated RBC % Sodium 140 Potassium 2.9 L* Chloride 101 Carbon Dioxide 31 Anion Gap 8 BUN 11.1 Creatinine 0.9 Est GFR (CKD-EPI)AfAm 113.41 Est GFR (CKD-EPI)NonAf 97.85 Random Glucose 199 H Calcium 7.9 L Total Bilirubin 0.4 AST 86 H ALT 57 Alkaline Phosphatase 93 Total Protein 7.7 Albumin 3.8 Syphilis Serology Non-reactive COVID-19 (URI) 10/20/19 10/21/19 10/22/19 11:00 08:45 08:10 WBC 7.1 6.2 RBC 4.36 4.31 Hgb 14.4 14.1 Hct 43.0 43.2 MCV 98.7 H 100.1 H MCH 33.0 32.8 MCHC 33.4 32.7 RDW 13.5 13.7 Plt Count 124 L 127 L MPV 9.8 10.2 Absolute Neuts (auto) 3.0 Neutrophils % 48.1 D Lymphocytes % 35.9 D Monocytes % 9.3 Eosinophils % 6.1 H D Basophils % 0.6 Nucleated RBC % 0 Sodium Potassium Chloride Carbon Dioxide Anion Gap BUN Creatinine Est GFR (CKD-EPI)AfAm Est GFR (CKD-EPI)NonAf Random Glucose Calcium Total Bilirubin AST ALT Alkaline Phosphatase Total Protein Albumin Syphilis Serology COVID-19 (URI) Not detected 10/22/19 08:10 WBC RBC Hgb Hct MCV MCH MCHC RDW Plt Count MPV Absolute Neuts (auto) Neutrophils % Lymphocytes % Monocytes % Eosinophils % Basophils % Nucleated RBC % Sodium 136 Potassium 4.4 Chloride 103 Carbon Dioxide 29 Anion Gap 5 L BUN 8.2 Creatinine 0.6 Est GFR (CKD-EPI)AfAm 133.98 Est GFR (CKD-EPI)NonAf 115.60 Random Glucose 106 Calcium 9.2 Total Bilirubin 0.3 AST 54 H ALT 42 Alkaline Phosphatase 103 Total Protein 6.9 Albumin 3.4 Syphilis Serology COVID-19 (URI) Labs reviewed: thrombocytopenia and transaminitis noted Assessment: 10/24/19 17:17 Withdrawal sxs Noted with thrombocytopenia and transaminitis Plan: Continue detox Encourage PO water intake Pt scheduled for discharge tomorrow Thrombocytopenia: most likely due to alcoholism, encouraged abstinence and inpatient drug rehab, follow up with PCP for monitoring Transaminitis: most likely due to alcoholism, encouraged abstinence and inpatient drug rehab, follow up with PCP for monitoring
[2019-10-24] MEDS: THIAMINE HCL 100 MG TABLET (FP) PO SCH (22:16)
[2019-10-24] MEDS: MELATONIN 5 MG TABLETS PO SCH (22:17)
[2019-10-25] MEDS ORDERED: chlordiazePOXIDE HCL 10 MG CAPSULE PO ONE (05:00)
[2019-10-25] MEDS: NICOTINE 7 MG/24 HOURS TOPICAL PATCH TD SCH (10:29)
[2019-10-25] MEDS: PRENATAL VITAMINS W/ FOLIC ACID TABLET (FP) PO SCH (10:29)
--- NOTE | 2019-10-25 10:34 | DS ---
[facility] Detox Discharge Summary Admission Date: 10/20/19 Discharge Date: 10/25/19 - History Present History: Alcohol Dependence, Cannabis Dependence Additional Comments: alert,oriented x 3 ambulation on the unit lung clear on auscultation abdomen soft,no pain,no tenderness detox completed,no withdrawal symptom stable for discharge today total time of discharge 40 minutes follow up with after care program as arrangement Pertinent Past History: nicotine dependence - Physical Exam Results Vital Signs: Vital Signs Temperature 97.5 F L 10/25/19 05:06 Pulse Rate 70 10/25/19 05:06 Respiratory Rate 20 10/25/19 05:06 Blood Pressure 95/57 L 10/25/19 05:06 O2 Sat by Pulse Oximetry (%) 98 10/25/19 05:06 Pertinent Admission Physical Exam Findings: withdrawal signs and symptom Laboratory Last Values WBC 6.2 K/mm3 (4.0-10.0) 10/22/19 08:10 RBC 4.31 M/mm3 (4.00-5.60) 10/22/19 08:10 Hgb 14.1 GM/dL (11.7-16.9) 10/22/19 08:10 Hct 43.2 % (35.4-49) 10/22/19 08:10 MCV 100.1 fl (80-96) H 10/22/19 08:10 MCH 32.8 pg (25.7-33.7) 10/22/19 08:10 MCHC 32.7 g/dl (32.0-35.9) 10/22/19 08:10 RDW 13.7 % (11.9-15.9) 10/22/19 08:10 Plt Count 127 K/MM3 (134-434) L 10/22/19 08:10 MPV 10.2 fl (7.5-11.1) 10/22/19 08:10 Absolute Neuts (auto) 3.0 K/mm3 (1.5-8.0) 10/22/19 08:10 Neutrophils % 48.1 % (42.8-82.8) D 10/22/19 08:10 Lymphocytes % 35.9 % (8-40) D 10/22/19 08:10 Monocytes % 9.3 % (3.8-10.2) 10/22/19 08:10 Eosinophils % 6.1 % (0-4.5) H D 10/22/19 08:10 Basophils % 0.6 % (0-2.0) 10/22/19 08:10 Nucleated RBC % 0 % (0-0) 10/22/19 08:10 Sodium 136 mmol/L (136-145) 10/22/19 08:10 Potassium 4.4 mmol/L (3.5-5.1) 10/22/19 08:10 Chloride 103 mmol/L (98-107) 10/22/19 08:10 Carbon Dioxide 29 mmol/L (21-32) 10/22/19 08:10 Anion Gap 5 MMOL/L (8-16) L 10/22/19 08:10 BUN 8.2 mg/dL (7-18) 10/22/19 08:10 Creatinine 0.6 mg/dL (0.55-1.3) 10/22/19 08:10 Est GFR (CKD-EPI)AfAm 133.98 10/22/19 08:10 Est GFR (CKD-EPI)NonAf 115.60 10/22/19 08:10 Random Glucose 106 mg/dL (74-106) 10/22/19 08:10 Calcium 9.2 mg/dL (8.5-10.1) 10/22/19 08:10 Total Bilirubin 0.3 mg/dL (0.2-1) 10/22/19 08:10 AST 54 U/L (15-37) H 10/22/19 08:10 ALT 42 U/L (13-61) 10/22/19 08:10 Alkaline Phosphatase 103 U/L (45-117) 10/22/19 08:10 Total Protein 6.9 g/dl (6.4-8.2) 10/22/19 08:10 Albumin 3.4 g/dl (3.4-5.0) 10/22/19 08:10 Syphilis Serology Non-reactive (NONREACTIVE) 10/20/19 09:25 COVID-19 (RUI) Not detected (Not Detected) 10/20/19 11:00 Vital Signs Temperature 98.4 F 10/25/19 09:08 Pulse Rate 59 L 10/25/19 09:08 Respiratory Rate 18 10/25/19 09:08 Blood Pressure 111/59 L 10/25/19 09:08 O2 Sat by Pulse Oximetry (%) 97 10/25/19 09:08 - Treatment Hospital Course: Detox Protocol Followed, Detoxed Safely, Responded well, Discharged Condition Good Patient has Accepted a Rehab Referral to: declined - Medication Discharge Medications: Ambulatory Orders NK [No Known Home Medication] 02/13/16 - Diagnosis (1) Alcohol dependence with uncomplicated withdrawal Status: Acute (2) Nicotine dependence Status: Acute (3) Cannabis dependence Status: Chronic (4) Hypokalemia Status: Acute - AMA Did Patient Leave Against Medical Advice: No
--- NOTE | 2019-10-25 10:34 | PN ---
[facility] CIWA - CIWA Score Nausea/Vomitin-No Nausea/No Vomiting Muscle Tremors: None Anxiety: 1-Mildly Anxious Agitation: 0-Normal Activity Paroxysmal Sweats: No Perspiration Orientation: 0-Oriented Tacttile Disturbances: 0-None Auditory Disturbances: 0-None Visual Disturbances: 0-None Headache: 0-None Present CIWA-Ar Total Score: 1 S Progress Note (SOAP) Subjective: alert,no complaint Objective: 10/25/19 12:55 Vital Signs Temperature 98.4 F 10/25/19 09:08 Pulse Rate 59 L 10/25/19 09:08 Respiratory Rate 18 10/25/19 09:08 Blood Pressure 111/59 L 10/25/19 09:08 O2 Sat by Pulse Oximetry (%) 97 10/25/19 09:08 10/25/19 12:56 detox completed,no withdrawal symptom Assessment: 10/25/19 12:56 no withdrawal symptom Plan: stable for discharge today,follow up with after care program as arrangement,decline rehab
[2019-10-25 10:57] VITALS: BP 111/59; PULSE 59; TEMP 98.4
== END 2019-10-25 10:41 | disposition other institution (70) | DRG 775 ==
LOC: YASAS 08:28 → Y6N 10:14
PROVIDERS: ADMIT Allergy & Immunology; ATTEND Allergy & Immunology
PROC: HZ2ZZZZ Detoxification Services for Substance Abuse Treatment (ICD-10-PCS; principal; 2019-10-20)
DX: F10.230 Alcohol dependence with withdrawal, uncomplicated (principal); F10.220 Alcohol dependence with intoxication, uncomplicated; F12.20 Cannabis dependence, uncomplicated; F17.210 Nicotine dependence, cigarettes, uncomplicated; F19.282 Other psychoactive substance dependence with psychoactive substance-induced sleep disorder; F32.9 Major depressive disorder, single episode, unspecified; E87.6 Hypokalemia; D69.6 Thrombocytopenia, unspecified; R74.0 Nonspecific elevation of levels of transaminase and lactic acid dehydrogenase [LDH]
CPT/HCPCS: 36415; 80053; 85025; 85027; 86780; 93005; 93010; U0003

== ENCOUNTER 2019-10-25 10:45 | Inpatient (IN) | payer OTHER ==
[2019-10-25] MEDS ORDERED: MAG HYDROX/AL HYDROX/SIMETH 30 ML UNIT-DOSE CUP PO PRN (11:43)
[2019-10-25] MEDS ORDERED: MENTHOL/PHENOL 1 EACH UD MM PRN (11:43)
[2019-10-25] MEDS ORDERED: P-EPHED 60MG/TRIPROLIDI 2.5MG TABLET PO PRN (11:43)
[2019-10-25] MEDS ORDERED: NICOTINE POLACRILEX 2 MG GUM BUC PRN (11:43)
[2019-10-25] MEDS ORDERED: IBUPROFEN 400 MG TABLET (FP) PO PRN (11:43)
[2019-10-25] MEDS ORDERED: ACETAMINOPHEN 325 MG TABLET (FP) PO PRN (11:43)
[2019-10-25] MEDS ORDERED: MAGNESIUM HYDROX 2400MG/30ML ORAL SUSPENSION 30 ML CUP PO PRN (11:43)
[2019-10-25] MEDS ORDERED: guaiFENesin 200 MG/10 ML 10 ML UNIT-DOSE CUPS PO PRN (11:43)
[2019-10-25] MEDS ORDERED: LOPERAMIDE HCL 2 MG CAPSULE PO PRN (11:43)
[2019-10-25] MEDS ORDERED: hydrOXYzine PAMOATE 25 MG CAPSULE (FP) PO PRN (11:43)
[2019-10-25] MEDS ORDERED: MAGNESIUM CITRATE 300 ML BOTTLE PO PRN (11:43)
--- NOTE | 2019-10-25 11:45 | HP ---
[facility] Rehab Assess/Revision - Admission History Admitted to Rehab from: [facility] [address] [place] [address] - Vital signs Vital Signs: Vital Signs Period Temp Pulse Resp BP Sys/Brand Pulse Ox Last 24 Hr 97.7 F 78 18 102/69 98 - Findings Detox History & Physical reviewed: Yes Concur with findings: Yes Inpatient Rehab Admission - Rehab Decision to Admit Inpatient rehab admission?: Yes - Initial Determination Are CD services needed?: Yes Free of communicable disease: Yes Not in need of hospitalization: Yes - Rehab Admission Criteria Previous failed treatment: Yes Poor recovery environment: Yes Comorbidities: No Lacks judgement: No Patient is meeting Inpatient Rehab admission criteria:: Yes
[2019-10-25] MEDS: THIAMINE HCL 100 MG TABLET (FP) PO SCH (21:35)
[2019-10-25] MEDS: MELATONIN 5 MG TABLETS PO SCH (21:35)
[2019-10-26] MEDS: PRENATAL VITAMINS W/ FOLIC ACID TABLET (FP) PO SCH (10:06)
[2019-10-26] MEDS: NICOTINE 7 MG/24 HOURS TOPICAL PATCH TD SCH (10:06)
[2019-10-26] MEDS: THIAMINE HCL 100 MG TABLET (FP) PO SCH (21:02)
[2019-10-26] MEDS: MELATONIN 5 MG TABLETS PO SCH (21:02)
[2019-10-27] MEDS: NICOTINE 7 MG/24 HOURS TOPICAL PATCH TD SCH (10:31)
[2019-10-27] MEDS: PRENATAL VITAMINS W/ FOLIC ACID TABLET (FP) PO SCH (10:31)
[2019-10-27] MEDS: MELATONIN 5 MG TABLETS PO SCH (21:36)
[2019-10-27] MEDS: THIAMINE HCL 100 MG TABLET (FP) PO SCH (21:36)
[2019-10-28] MEDS: PRENATAL VITAMINS W/ FOLIC ACID TABLET (FP) PO SCH (10:43)
[2019-10-28] MEDS: NICOTINE 7 MG/24 HOURS TOPICAL PATCH TD SCH (10:43)
[2019-10-28] MEDS: MELATONIN 5 MG TABLETS PO SCH (21:03)
[2019-10-28] MEDS: THIAMINE HCL 100 MG TABLET (FP) PO SCH (21:03)
[2019-10-29 07:44] VITALS: BP 106/77; PULSE 72; TEMP 98.5
[2019-10-29] MEDS: NICOTINE 7 MG/24 HOURS TOPICAL PATCH TD SCH (10:54)
[2019-10-29] MEDS: PRENATAL VITAMINS W/ FOLIC ACID TABLET (FP) PO SCH (10:54)
--- NOTE | 2019-10-29 13:38 | DS ---
[facility] Rehab Discharge Summary - [facility] Rehab Discharge Summary Admission Date: 10/25/19 Discharge Date: 10/29/19 - History Present History: Alcohol dependence, Opioid dependence - Discharge Physical Exam Vital Signs: Vital Signs Temperature 98.5 F 10/29/19 07:05 Pulse Rate 72 10/29/19 07:05 Respiratory Rate 18 10/29/19 07:05 Blood Pressure 106/77 10/29/19 07:05 O2 Sat by Pulse Oximetry (%) 97 10/29/19 07:05 ROS: DENIES ALCOHOL/OPIOD CRAVINGS, SHAKES, SWEATS AND BODY ACHES. PATIENT REQUESTED DISCHARGE TODAY FROM REHAB STATING HE HAS "PERSONAL THINGS TO TAKE CARE OF". PE: ALERT AND ORIENTED X 3 SKIN WARM AND DRY EOMS INTACT B/L EXT FULL ROM, AMB AD DORYS NO TREMORS DENIES SI/HI A/P: ALCOHOL/OPIOD DEPENDENCE PATIENT IS MEDICALLY STABLE FOR DISCHARGE AFTERCARE REFERRAL GIVEN FOR [facility] [address] - Treatment Discharge Condition: Discharge condition good, Rehabilitated safely, Responded well, Outpatient referral accepted Hospital Course: PATIENT REQUESTED DISCHARGE FROM REHAB TODAY STATING HE HAS PERSONAL THINGS TO TAKE OF. HE IS MEDICALLY STABLE AND DENIES SI/HI. PATIENT ADMITTED FOR ETOH/OPIOD DEPENDENCE AND DENIES ANY CRAVINGS, SHAKES, SWEATS AND BODY ACHES AT THIS TIME. AFTERCARE REFERRAL GIVEN FOR [facility] AND PATIENT STATES HE WILL FOLLOW UP WITH REFERRAL ON Friday11/01/2019. DURING COURSE OF TREATMENT, PATIENT ATTENDED GROUP MEETINGS AND I:1 SESSIONS WITH COUNSELOR. PATIENT MEDICALLY ADVISED TO FOLLOW UP WITH PCP RECOMMENDED AND TO CONTINUE WITH CARE HOME CARE TREATMENT PROGRAM TO PREVENT RELAPSE. Ambulatory Orders NK [No Known Home Medication] 02/13/16 - Medication Discharge Medications: Ambulatory Orders NK [No Known Home Medication] 02/13/16 - Medication-Assisted Treatment (MAT) Medication-Assisted Treatment (MAT): No - Discharge Instructions Diet, activity, other medical instructions: Diet: REG Activity: TOLERATED Other medical instructions: F.U WITH PCP RECOMMENDED - Follow-up Referral Minutes to complete discharge: 30 - AMA Did Patient Leave Against Medical Advice: No
== END 2019-10-29 13:43 | disposition home or self-care (01) | DRG 772 ==
LOC: YASAS 10:45 → Y3W 10:46
PROVIDERS: ADMIT Allergy & Immunology; ATTEND Allergy & Immunology
PROC: HZ42ZZZ Group Counseling for Substance Abuse Treatment, Cognitive-Behavioral (ICD-10-PCS; principal; 2019-10-25)
DX: F10.20 Alcohol dependence, uncomplicated (principal); F11.20 Opioid dependence, uncomplicated; F17.210 Nicotine dependence, cigarettes, uncomplicated

== ENCOUNTER 2019-11-26 12:04 | Inpatient (IN) | payer OTHER ==
--- OUTSIDE RECORDS SUMMARY | 2019-11-26 12:19 | XMS ---
:1965 Author Organization [facility] Care Team Providers Name Role Phone NONE, NONE Unavailable Unavailable Pradeep Dickson MD Unavailable Unavailable Lisa Dickson MD Unavailable Unavailable Lisa Dickson MD Unavailable Unavailable Lisa Dickson MD Unavailable Unavailable Lisa Dickson MD Unavailable Unavailable Re-disclosure Warning The records that you are about to access may contain information from federally- assisted alcohol or drug abuse programs. If such information is present, then the following federally mandated warning applies: This information has been disclosed to you from records protected by federal confidentiality rules (42 CFR part 2). The federal rules prohibit you from making any further disclosure of this information unless further disclosure is expressly permitted by the written consent of the person to whom it pertains or as otherwise permitted by 42 CFR part 2. A general authorization for the release of medical or other information is NOT sufficient for this purpose. The Federal rules restrict any use of the information to criminally investigate or prosecute any alcohol or drug abuse patient.The records that you are about to access may contain highly sensitive health information, the redisclosure of which is protected by Article 27-F of the [place] State Public Health law. If you continue you may haveaccess to information: Regarding HIV / AIDS; Provided by facilities licensed or operated by the [facility] Office of Mental Health; or Provided by the [facility] Office for People With Developmental Disabilities. If such information is present, then the following [facility] mandated warning applies: This information has been disclosed to you from confidential records which are protected by state law. State law prohibits you from making any further disclosure of this information without the specific written consent of the person to whom it pertains, or as otherwise permitted by law. Any unauthorized further disclosure in violation of state law may result in a fine or half-way sentence or both. A general authorization for the release of medical or other information is NOT sufficient authorization for further disclosure. Allergies and Adverse Reactions Type Description Substance Reaction Status Data Source(s ) D No Known Medication No Known Medication [place] [facility] - Allergies Allergies [facility] Encounters Encounter Providers Location Date Indications Data Source(s ) Emergency Attender: Pradeep MASSEY XR-ED 03/02/2019 ER A [place] [facility] [place] Dickson MDReferrer: 11:50:18 PM [facility] NONE NONE [facility] 03/03/2019 05:16:00 AM EST ER A Patient discharged. Emergency Attender: Pradeep [facility] 03/02/2019 BIBI Dickson [facility] 11:50:18 PM [facility] 03/03/2019 [facility] 05:16:00 AM EST Medications Medication Brand Start Product Dose Route Administrative Pharmacy [facility] Indications Reaction Description Data Name Date Form Instructions Instructions Source(s) lidocaine a32934 .0 [place] 2% mucous 2019 tori l [facility] membrane 02:14: an - solution 00 AM [facility] Augmentin k69848 .0 Oral [place] 875 mg oral 2019 tab [facility] tablet 02:13: an - 00 AM [facility] Insurance Providers Payer name Policy type Policy ID Covered Covered democrat's Policy P fadi / Coverage democrat ID relationship to [facility] type [place] ESTER [id number] 600 HEALTH NON CAP ESTER/AFUA [facility] [id number] R HEALTH PLAN MEDICAID [id number] SP [id number] PENDING SP EXCHANGE SELF PAY SP INSURANCE Medicaid [id number] Regular Clinic Visit Surgeries/Procedures Procedure Description Date Indications Data Source(s) COLLECTION VENOUS BLOOD 03/03/2019 BIBI [facility] - VENIPUNCTURE 04:00:00 AM [facility] COLLECTION VENOUS BLOOD 03/03/2019 [place] [facility] - VENIPUNCTURE 04:00:00 AM [facility] COLLECTION VENOUS BLOOD 03/03/2019 [place] [facility] - VENIPUNCTURE 12:01:00 AM EST [facility] COLLECTION VENOUS BLOOD 03/03/2019 [place] [facility] - VENIPUNCTURE 12:01:00 AM [facility] COLLECTION VENOUS BLOOD 03/03/2019 [place] [facility] - VENIPUNCTURE 12:01:00 AM [facility] Results ID Date Data Source [id number] 10/20/2019 11:00:00 AM EDT [facility] Name Value Range Interpretation Description Data Sup porting Code Source(s) Document(s ) SARS [facility] coronavirus 2 RNA This lab was ordered by [facility] Mariano Zacarias and reported by [facility]. ID Date Data Source [id number] 03/03/2019 04:00:00 AM EST [facility] [id number] [facility] Name Value Range Interpretation Description Data Source(s ) Supporting Code Document(s ) Troponin 0.034 [facility] Result ng/mL - [facility] ID Date Data Source [id number] 03/03/2019 04:00:00 AM EST [facility] [id number] [facility] Name Value Range Interpretation Description Data Source(s ) Supporting Code Document(s ) Troponin Neg Normal ([facility]19 to non-numeric [facility] 4:00 AM) results) Hospital Center ID Date Data Source [id number] 03/03/2019 12:16:39 AM EST [facility] [id number] [facility] Center Name Value Range Interpretation Description Data Source(s ) Supporting Code Document(s ) RADRPT <table border="1" [facility] g[facility]carlo width="95%"><colgrou [facility] p><col Hospital Center width="25%"></col><c ol width="25%"></col><c ol width="25%"></col><c ol width="25%"></col></ colgroup><tbody><tr> <td>Exam Date Time</td><td>Procedu re</td><td>Performin g Provider</td><td>Sta tus</td></tr><tr><td >03/03/19 12:28 AM</td><td>XR Chest 1 View</td><td>CRESENCIO GUARDADO; </td><td>Auth (Verified)</td></tr> </tbody></table><par agraph>Notes:</luis enrique raph><paragraph>(XR Chest 1 View) Reason For Exam: Chest Pain</paragraph><par agraph><content>Repo rt</content>
<co ntent ID="[id number]">EXAMINATION: Single frontal view of the chest was obtained.
HISTORY: Chest pain.
COMPARISON :none

There is no focal infiltrate or pleural effusion. The
cardiomedias tinal silhouette is within normal limits.

IMPRESSION :
No focal consolidation.</cont ent>
<content> Final
Dictated By: MARK MATAMOROS MD 03.03.2019 8:05 am

Released By: (Electronic Signature)
Dolores d: MARK MATAMOROS MD 03.03.2019 8:05 am

Transcri bed: 03.03.2019 8:08 am</content></paragr aph> ID Date Data Source [id number] 03/03/2019 12:01:00 AM EST [place] [facility] - [facility] [id number] [facility] Name Value Range Interpretation Description Data Source(s ) Supporting Code Document(s ) Troponin 0.038 [place] [facility] Result ng/mL - [facility] ID Date Data Source [id number] 03/03/2019 12:01:00 AM EST [facility] [id number] Hospital Center Name Value Range Interpretation Code Description Data Claudia rce(s) Supporting Document(s ) EGFR AA [facility] EGFR Non [facility] - [facility] ID Date Data Source [id number] 03/03/2019 12:01:00 AM EST [facility] [id number] Hospital Center Name Value Range Interpretation Description Data Source(s ) Supporting Code Document(s ) Neutro 73.8 % Normal (applies [place] [facility] [place] Percent to non-numeric - [facility] results) Hospital Center Eos Percent 1.4 % Normal (applies [place] [facility] to non-numeric [facility] results) Hospital [facility] Lymph 16.8 % Below low normal [facility] - [facility] [place] Percent 7.4 % Normal (applies [place] [facility] to non-numeric - [facility] results) [facility] Lymph 2.0 Normal (applies [place] [facility] [place] Absolute x10(3)/mc to non-numeric - [facility] L results) Hospital Center Baso Percent 0.6 % Normal (applies [place] [facility] to non-numeric - [facility] results) Hospital Center Neutro 8.8 Above high normal [place] [facility] Absolute x10(3)/mc - [facility] [place] 0.9 Normal (applies [place] [facility] [place] Absolute x10(3)/mc to non-numeric - [facility] results) [facility] Eos Absolute 0.2 Normal (applies [place] [facility] x10(3)/mc to non-numeric - [facility] results) [facility] Baso 0.1 Normal (applies [place] [facility] [place] Absolute x10(3)/mc to non-numeric - [facility] results) Hospital Center ID Date Data Source [id number] 03/03/2019 12:01:00 AM EST [facility] [id number] Hospital Center Name Value Range Interpretation Description Data Source(s ) Supporting Code Document(s ) Troponin Borderline Normal (applies [place] Prelim (03/03/19 to non-numeric [facility] - 12:01 AM) results) [facility] ID Date Data Source [id number] 03/03/2019 12:01:00 AM EST [facility] [id number] [facility] Name Value Range Interpretation Code Description Data Claudia rce(s) Supporting Document(s ) PT 11.5 s Normal (applies to [place] [facility] - non-numeric results) [facility] INR 1.0 Normal (applies to [place] [facility] - non-numeric results) [facility] ID Date Data Source [id number] 03/03/2019 12:01:00 AM EST [facility] [id number] [facility] Name Value Range Interpretation Description Data Source(s ) Supporting Code Document(s ) Magnesium 1.4 mg/dL Below low normal [facility] ID Date Data Source [id number] 03/03/2019 12:01:00 AM EST [facility] [id number] [facility] Name Value Range Interpretation Description Data Source(s ) Supporting Code Document(s ) Glucose Lvl 106 Normal (applies [place] [facility] mg/dL to non-numeric [facility] results) Hospital Center BUN 11 mg/dL Normal (applies [place] [facility] [place] to non-numeric [facility] results) [facility] Sodium Lvl 136 Below low normal [place] [facility] mmol/L - [facility] Creatinine 0.67 Normal (applies [place] [facility] mg/dL to non-numeric [facility] results) Hospital Center Potassium Lvl 4.1 Normal (applies [place] [facility] mmol/L to non-[facility] results) [facility] AGPK 14.1 Normal (applies [place] [facility] [place] to non-numeric [facility] results) Hospital Center CO2 28 Normal (applies [place] [facility] [place] mmol/L to non-numeric [facility] results) Hospital [facility] Chloride 98 Normal (applies [place] [facility] mmol/L to [facility] results) Hospital Center Albumin Lvl 4.6 g/dL Normal (applies [place] [facility] to [facility] results) Hospital Center Calcium Lvl 9.7 Normal (applies [place] [facility] mg/dL to [facility] results) Hospital Center AST 113 Above high normal [facility]L [facility] Total Protein 7.8 g/dL Normal (applies [place] [facility] to [facility] results) Hospital Center Bili Total 0.60 Normal (applies [place] [facility] mg/dL to [facility] results) Hospital Center Alk Phos 86 Normal (applies [place] [facility] n unit/L to [facility] results) [facility] ALT 79 Above high [facility] ID Date Data Source [id number] 03/03/2019 12:01:00 AM EST [facility] [id number] Hospital Center Name Value Range Interpretation Description Data Source(s ) Supporting Code Document(s ) Hgb 14.6 g/dL Normal (applies to [facility] results) [facility] RBC 4.31 Below low normal [place] [facility] x10(6)/[facility] WBC 12.0 Above high normal [place] [facility] x10(3)/[facility] MCV 102.9 fL Above high normal [facility] MCH 34.0 pg Above high normal [facility] Hct 44.4 % Normal ([facility] to [facility] results) Hospital Center RDW 12.9 % Normal (applies to [facility] results) [facility] Platelet 128 Below low normal [place] [facility] an x10(3)/[facility] MCHC 33.0 g/dL Normal (applies to [facility] non-numeric - [facility] results) Hospital Center MPV 9.3 fL Normal (applies to [facility] non-numeric - [facility] results) Hospital Center Procedure Vital Signs ID Date Data Source UNK Name Value Range Interpretation Code Description Data Source(s) Mean blood 83 mm[Hg] 83 mm[Hg] [facility] - pressure [facility] Diastolic blood 63 mm[Hg] Normal (applies to 63 mm[Hg] N [place] [facility] - pressure non-numeric results) [facility] Systolic blood 124 mm[Hg] Normal (applies to 124 mm[Hg] [place] [facility] - pressure non-numeric results) [facility] Respiratory rate 18 br/min Normal (applies to 18 br/min [place] [facility] - non-numeric results) [facility] Heart rate Cardiac 91 bpm Normal (applies to 91 bpm [place] [facility] - apex by by non-numeric results) [facility] Body temperature - 99.3 [degF] 99.3 [degF] [facility] - Temporal artery [facility] Mean blood 105 mm[Hg] 105 mm[Hg] [place] [facility] - pressure [facility] Diastolic blood 88 mm[Hg] Normal (applies to 88 mm[Hg] N [place] [facility] - pressure non-numeric results) [facility] Systolic blood 139 mm[Hg] Normal (applies to 139 mm[Hg] [place] [facility] - pressure non-numeric results) [facility] Respiratory rate 18 br/min Normal (applies to 18 br/min [place] [facility] - non-numeric results) [facility] Peripheral Pulse 97 bpm Normal (applies to 97 bpm [place] [facility] - Rate non-numeric results) [facility] Body temperature - 97.2 [degF] 97.2 [degF] [place] P [facility] - Temporal artery [facility] Mean blood 95 mm[Hg] 95 mm[Hg] [facility] - pressure [facility] Diastolic blood 80 mm[Hg] Normal (applies to 80 mm[Hg] N [place] [facility] - pressure non-numeric results) [facility] Systolic blood 125 mm[Hg] Normal (applies to 125 mm[Hg] [facility] - pressure non-numeric results) [facility] Respiratory rate 18 br/min Normal (applies to 18 br/min [place] [facility] - non-numeric results) [facility] Heart rate Cardiac 87 bpm Normal (applies to 87 bpm [place] [facility] - apex by by non-numeric results) [facility] [address] Body temperature - 97.9 [degF] 97.9 [degF] [facility] - Temporal artery [facility] Body surface area 1.96 1.96 [facility] Body weight 81 kg 81 kg [facility] an - Measured [facility] Body height 170 cm 170 cm [facility] Peripheral Pulse 93 bpm Normal (applies to 93 bpm [place] [facility] - Rate non-numeric results) [facility] Body height 170.000 cm 170.000 cm [facility] Body weight 81.000 kg 81.000 kg [facility] an - [facility] Patient Treatment Plan of Care Planned Activity Planned Date Details Description Data Source (s) lidocaine 2% mucous 03/03/2019 02:14:00 N Pushpa [facility] membrane solution [facility] Augmentin 875 mg oral 03/03/2019 02:13:00 [facility] tablet [facility]
--- NOTE | 2019-11-26 12:53 | BHS.RME ---
2019 N Coronavirus Screen - COVID-19 Screening Questions Dx of COVID-19 or had a positive test in the last 4 weeks?: No Contact with known/suspected COVID patient in last 14 days?: No Any of these symptoms or contact with someone who has?: None Traveled domestically/internationally in the last 14 days?: No Screen score: 0 Screen result: Further Evaluation Substance Use & Tx History - Substance Use History Barbiturate Substance amount: 1 quart vodka Frequency of use: Daily Substance route: Oral Date of Last Use: 11/26/19 (started age 11) Marijuana/Hashish Substance amount: 1 joint Frequency of use: Daily Substance route: Smoking Date of Last Use: 11/26/19 (started age 11) Nicotine Substance amount: 1 pack Frequency of use: Daily Substance route: Smoking Date of Last Use: 11/26/19 (started age 11) Physical/Psych/Mental Status - Behavior General Behavior: Decreased activity Eye Contact: Normal - Cooperativeness Cooperativeness: Cooperative - Thinking Thought Processes: Tight, Logical, Goal Directed - Physical Health Problems Is patient presently having any pain?: No Does patient presently have any injuries (include location): No Does patient currently have a fever: No Is patient : No CIWA Nausea/Vomitin Muscle Tremors: 5 Anxiety: 3 Agitation: 3 Paroxysmal Sweats: 4-Forehead w/Sweat Beads Orientation: 1-Uncertain about Date Tacttile Disturbances: 0-None Auditory Disturbances: 0-None Visual Disturbances: 0-None Headache: 0-None Present CIWA-Ar Total Score: 19
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
[2019-11-26] MEDS ORDERED: BISMUTH SUBSALICYLATE 524 MG/30 ML UD PO PRN (16:55)
[2019-11-26] MEDS ORDERED: IBUPROFEN 400 MG TABLET (FP) PO PRN (16:55)
[2019-11-26] MEDS ORDERED: ONDANSETRON *ODT* 4 MG TABLET SL PRN (16:55)
[2019-11-26] MEDS ORDERED: MAG HYDROX/AL HYDROX/SIMETH 30 ML UNIT-DOSE CUP PO PRN (16:55)
[2019-11-26] MEDS ORDERED: MAGNESIUM HYDROX 2400MG/30ML ORAL SUSPENSION 30 ML CUP PO PRN (16:55)
[2019-11-26] MEDS ORDERED: ACETAMINOPHEN 325 MG TABLET (FP) PO PRN ×2 (16:55)
[2019-11-26] MEDS ORDERED: METHOCARBAMOL 500 MG TABLET PO PRN (16:55)
[2019-11-26] MEDS ORDERED: NICOTINE POLACRILEX 2 MG GUM BUC PRN (16:55)
[2019-11-26] MEDS ORDERED: MENTHOL/PHENOL 1 EACH UD MM PRN (16:55)
[2019-11-26] MEDS ORDERED: MAGNESIUM CITRATE 300 ML BOTTLE PO PRN (16:55)
[2019-11-26] MEDS ORDERED: chlordiazePOXIDE HCL 25 MG CAPSULE PO PRN (16:55)
[2019-11-26 17:02] VITALS: BMI 29.5
--- OUTSIDE RECORDS SUMMARY | 2019-11-26 17:30 | XMS ---
[...] is protected by Article 27-F of the [place] State Public Health law. If you continue you may haveaccess to information: Regarding HIV / AIDS; Provided by facilities licensed or operated by the [facility] Office of Mental Health; or Provided by the [facility] Office for People With Developmental Disabilities. If such information is present, then the following [facility] mandated warning applies: This information has been [...] law may result in a fine or snf sentence or both. A general authorization for the release of medical or other information is NOT sufficient authorization for further disclosure. Allergies and Adverse Reactions Type Description Substance Reaction Status Data Source(s ) D No Known Medication No Known Medication [place] [facility] - Allergies Allergies [facility] Encounters Encounter Providers Location Date Indications Data Source(s ) Emergency Attender: Pradeep MASSEY XR-ED 03/02/2019 [place] [facility] darien Dickson MDReferrer: 11:50:[address] [facility] NONE NONE [facility] 03/03/2019 05:16:00 AM EST ER A Patient discharged. Emergency Attender: Pradeep [facility] 03/02/2019 BIBI Dickson [facility] 11:50:18 PM [facility] 03/03/2019 [facility] 05:16:00 AM EST Medications Medication Brand Start Product Dose Route Administrative Pharmacy [facility] Indications Reaction Description Data Name Date Form Instructions Instructions Source(s) lidocaine v67948 .0 [place] 2% mucous 2019 tori l [facility] membrane 02:14: an - solution 00 AM [facility] Augmentin t51211 .0 Oral [place] 875 mg oral 2019 tab [facility] tablet 02:13: an - 00 AM [facility] Insurance Providers Payer name Policy type Policy ID Covered Covered alliance party's Policy P fadi / Coverage alliance party ID relationship to [place] [facility] type [place] ESTER [id number] HEALTH NON CAP ESTER/AFUA [facility] [id number] R HEALTH PLAN MEDICAID [id number] SP [id number] PENDING SP EXCHANGE SELF PAY SP INSURANCE Medicaid [id number] S [id number] Regular Clinic Visit Surgeries/Procedures Procedure Description Date Indications Data Source(s) COLLECTION VENOUS BLOOD 03/03/2019 BIBI [facility] - [facility] 04:00:00 AM [facility] COLLECTION VENOUS BLOOD 03/03/2019 DE [facility] - VENIPUNCTURE 04:00:00 AM [facility] COLLECTION VENOUS BLOOD 03/03/2019 DE [facility] - VENIPUNCTURE 12:01:00 AM EST [facility] COLLECTION VENOUS BLOOD 03/03/2019 DE [facility] - VENIPUNCTURE 12:01:00 AM [facility] COLLECTION VENOUS BLOOD 03/03/2019 DE [facility] - VENIPUNCTURE 12:01:00 AM [facility] Results ID Date Data Source [id number] 10/20/2019 11:00:00 AM EDT [facility] Name Value Range Interpretation Description Data Sup porting Code Source(s) Document(s ) SARS [facility] coronavirus 2 RNA This lab was ordered by [facility] Zacarias and reported by [facility]. ID Date Data Source [id number] 03/03/2019 04:00:00 AM EST [facility] [id number] [facility] Name Value Range Interpretation Description Data Source(s ) Supporting Code Document(s ) Troponin 0.034 [place] [facility] Result ng/mL - [facility] ID Date Data Source [id number] 03/03/2019 04:00:00 AM EST [facility] [id number] [facility] Name Value Range Interpretation Description Data Source(s ) Supporting Code Document(s ) Troponin Neg Normal ([facility] (03/03/19 to non-numeric [facility] 4:00 AM) results) Hospital Center ID Date Data Source [id number] 03/03/2019 12:16:39 AM EST [place] [facility] [id number] [facility] Name Value Range Interpretation Description Data Source(s ) Supporting Code Document(s ) RADRPT <table border="1" [place] [facility] giancarlo width="95%"><colgrou [facility] p><col Hospital Center width="25%"></col><c ol width="25%"></col><c ol width="25%"></col><c ol width="25%"></col></ colgroup><tbody><tr> <td>Exam Date Time</td><td>Procedu re</td><td>Performin g Provider</td><td>Sta tus</td></tr><tr><td >03/03/19 12:28 AM</td><td>XR Chest 1 View</td><td>CRESENCIO GUARDADO; </td><td>Auth (Verified)</td></tr> </tbody></table><par agraph>Notes:</luis enrique raph><paragraph>(XR Chest 1 View) Reason For Exam: Chest Pain</paragraph><par agraph><content>Repo rt</content>
<co ntent ID="[id number]">EXAMINATION: Single frontal view of the chest [...] 8:08 am</content></paragr aph> ID Date Data Source [id number] 03/03/2019 12:01:00 AM EST [place] [facility] [id number] [facility] Name Value Range Interpretation Description Data Source(s ) Supporting Code Document(s ) Troponin 0.038 [facility] Result ng/mL - [facility] ID Date Data Source [id number] 03/03/2019 12:01:00 AM EST [facility] [id number] Hospital Center Name Value Range Interpretation Code Description Data Claudia rce(s) Supporting Document(s ) EGFR AA [facility] EGFR Non [facility] - AA [facility] ID Date Data Source [id number] 03/03/2019 12:01:00 AM EST [facility] [id number] Hospital Center Name Value Range Interpretation Description Data Source(s ) Supporting Code Document(s ) Neutro 73.8 % Normal (applies [place] [facility] n Percent to non-numeric - [facility] results) Hospital Center Eos Percent 1.4 % Normal (applies [place] [facility] [place] to non-numeric [facility] results) Hospital [facility] Lymph 16.8 % Below low normal [facility] [place] Percent 7.4 % Normal (applies [place] [facility] juanita to non-numeric - [facility] results) [facility] Lymph 2.0 Normal (applies [place] [facility] [place] Absolute x10(3)/mc to non-numeric - [facility] L results) Hospital Center Baso Percent 0.6 % Normal (applies [place] [facility] ju[place]ita to non-numeric - [facility] results) [facility] Neutro 8.8 Above high normal [place] [facility] Absolute x10(3)/mc - [place] [facility] [place] 0.9 Normal (applies [place] [facility] [place] Absolute x10(3)/mc to non-numeric - [place] [facility] results) Hospital [facility] Eos Absolute 0.2 Normal (applies [place] [facility] x10(3)/mc to non-numeric - [place] [facility] results) [facility] Baso 0.1 Normal (applies [place] [facility] [place] Absolute x10(3)/mc to non-numeric - [place] [facility] results) Hospital Center ID Date Data Source [id number] 03/03/2019 12:01:00 AM EST [facility] [id number] Hospital Center Name Value Range Interpretation Description Data Source(s ) Supporting Code Document(s ) Troponin Borderline Normal (applies [place] Prelim (03/03/19 to non-numeric [facility] - 12:01 AM) results) [facility] ID Date Data Source [id number] 03/03/2019 12:01:00 AM EST [facility] [id number] [facility] Name Value Range Interpretation Code Description Data Claudia rce(s) Supporting Document(s ) PT 11.5 s Normal (applies to [place] [facility] juanita - non-numeric results) [facility] INR 1.0 Normal (applies to [place] [facility] juanita - non-numeric results) [facility] ID Date Data Source [id number] 03/03/2019 12:01:00 AM EST [facility] [id number] [facility] Name Value Range Interpretation Description Data Source(s ) Supporting Code Document(s ) Magnesium 1.4 mg/dL Below low normal [facility] ID Date Data Source [id number] 03/03/2019 12:01:00 AM EST [facility] [id number] [facility] Name Value Range Interpretation Description Data Source(s ) Supporting Code Document(s ) Glucose Lvl 106 Normal (applies [place] [facility] giancarlo mg/dL to non-numeric [facility] results) Hospital [facility] BUN 11 mg/dL Normal (applies [place] [facility] [place] to non-numeric [facility] results) [facility] Sodium Lvl 136 Below low normal [place] [facility] giancarlo mmol/L - [facility] Creatinine 0.67 Normal (applies [place] [facility] an mg/dL to non-numeric [facility] results) Hospital Center Potassium Lvl 4.1 Normal (applies [place] [facility] mmol/L to non-[facility] results) [facility] AGPK 14.1 Normal (applies [place] [facility] [place] to non-numeric [facility] results) [facility] CO2 28 Normal (applies [place] [facility] [place] mmol/L to non-numeric [facility] results) [facility] Chloride 98 Normal (applies [place] [facility] n mmol/L to [facility] results) Hospital [facility] Albumin Lvl 4.6 g/dL Normal (applies [place] [facility] giancarlo to [facility] results) [facility] Calcium Lvl 9.7 Normal (applies [place] [facility] giancarlo mg/dL to [facility] results) [facility] AST 113 Above high normal [facility]L [facility] Total Protein 7.8 g/dL Normal (applies [place] [facility] to [facility] results) [facility] Bili Total 0.60 Normal (applies [place] [facility] an mg/dL to [facility] results) [facility] Alk Phos 86 Normal (applies [place] [facility] n unit/L to [facility] results) [facility] ALT 79 Above [facility] ID Date Data Source [id number] 03/03/2019 12:01:00 AM EST [facility] [id number] Hospital Center Name Value Range Interpretation Description Data Source(s ) Supporting Code Document(s ) Hgb 14.6 g/dL Normal (applies to [facility] results) [facility] RBC 4.31 Below low normal [place] [facility] an x10(6)/[facility] WBC 12.0 Above high normal [place] [facility] giancarlo x10(3)/[facility] MCV 102.9 fL Above high normal [facility] MCH 34.0 pg Above high normal [facility] Hct 44.4 % Normal (applies to [facility] results) Hospital [facility] RDW 12.9 % Normal (applies to [facility] results) [facility] Platelet 128 Below low normal [place] [facility] an x10(3)/[facility] MCHC 33.0 g/dL Normal (applies to [facility] non-numeric - [facility] results) Hospital Center MPV 9.3 fL Normal (applies to [facility] non-numeric - [facility] results) Hospital [facility] Procedure Vital Signs ID Date Data Source UNK Name Value Range Interpretation Code Description Data Source(s) Mean blood 83 mm[Hg] 83 mm[Hg] [place] [facility] n - pressure [facility] Diastolic blood 63 mm[Hg] Normal (applies to 63 mm[Hg] N [place] [facility] - pressure non-numeric results) [facility] Systolic blood 124 mm[Hg] Normal (applies to 124 mm[Hg] [place] [facility] - pressure non-numeric results) [facility] Respiratory rate 18 br/min Normal (applies to 18 br/min [place] [facility] - non-numeric results) [facility] Heart rate Cardiac 91 bpm Normal (applies to 91 bpm [place] [facility] - apex by by non-numeric results) [facility] ter Body temperature - 99.3 [degF] 99.3 [degF] [facility] - Temporal artery [facility] Mean blood 105 mm[Hg] 105 mm[Hg] [place] [facility] n - pressure [facility] Diastolic blood 88 mm[Hg] Normal (applies to 88 mm[Hg] N [place] [facility] - pressure non-numeric results) [facility] Systolic blood 139 mm[Hg] Normal (applies to 139 mm[Hg] [place] [facility] - pressure non-numeric results) [facility] Respiratory rate 18 br/min Normal (applies to 18 br/min [place] [facility] - non-numeric results) [facility] Peripheral Pulse 97 bpm Normal (applies to 97 bpm [place] [facility] - Rate non-numeric results) [facility] Body temperature - 97.2 [degF] 97.2 [degF] [place] P [facility] - Temporal artery [facility] Mean blood 95 mm[Hg] 95 mm[Hg] [place] [facility] n - pressure [facility] Diastolic blood 80 mm[Hg] Normal (applies to 80 mm[Hg] N [place] [facility] - pressure non-numeric results) [facility] Systolic blood 125 mm[Hg] Normal (applies to 125 mm[Hg] [place] [facility] - pressure non-numeric results) [facility] Respiratory rate 18 br/min Normal (applies to 18 br/min [place] [facility] - non-numeric results) [facility] Heart rate Cardiac 87 bpm Normal (applies to 87 bpm [place] [facility] - apex by by non-numeric results) [facility] [address] Body temperature - 97.9 [degF] 97.9 [degF] [facility] - Temporal artery [facility] Body surface area 1.96 1.96 [facility] Body weight 81 kg 81 kg [facility] an - Measured [facility] Body height 170 cm 170 cm [facility] Peripheral Pulse 93 bpm Normal (applies to 93 bpm [place] [facility] - Rate non-numeric results) [facility] Body height 170.000 cm 170.000 cm [facility] Body weight 81.000 kg 81.000 kg [facility] an - [facility] Patient Treatment Plan of Care Planned Activity Planned Date Details Description Data Source (s) lidocaine 2% mucous 03/03/2019 02:14:00 N [facility] membrane solution [facility] Augmentin 875 mg oral 03/03/2019 02:13:00 [facility] tablet [facility]
[2019-11-26] MEDS: chlordiazePOXIDE HCL 25 MG CAPSULE PO SCH (22:30)
[2019-11-26] MEDS: MELATONIN 5 MG TABLETS PO SCH (22:31)
[2019-11-26] MEDS: THIAMINE HCL 100 MG TABLET (FP) PO SCH (22:32)
[2019-11-27] MEDS: chlordiazePOXIDE HCL 25 MG CAPSULE PO SCH ×4 (05:13→22:24)
[2019-11-27 09:03] LABS: HEMATOCRIT 41.8 % (35.4-49); HEMOGLOBIN 14.3 GM/dL (11.7-16.9); MCH 34.1 pg (25.7-33.7); MCHC 34.3 g/dl (32.0-35.9); MEAN CELL VOLUME 99.3 fl (80-96); MEAN PLT VOLUME 9.8 fl (7.5-11.1); PLATELET COUNT 168 K/MM3 (134-434); RDW 13.4 % (11.9-15.9); WHITE BLOOD COUNT 10.3 K/mm3 (4.0-10.0)
[2019-11-27 09:06] LABS: POTASSIUM 3.3 mmol/L (3.5-5.1)
[2019-11-27 09:08] LABS: CALCIUM 9.3 mg/dL (8.5-10.1)
[2019-11-27 09:09] LABS: ALBUMIN 3.2 g/dl (3.4-5.0); BLOOD UREA NITROGEN 17.8 mg/dL (7-18)
[2019-11-27 09:12] LABS: CREATININE 0.7 mg/dL (0.55-1.3)
[2019-11-27 09:14] LABS: TOT PROT 6.6 g/dl (6.4-8.2)
[2019-11-27] MEDS: PRENATAL VITAMINS W/ FOLIC ACID TABLET (FP) PO SCH (10:23)
[2019-11-27] MEDS: NICOTINE 21 MG/24 HOURS TOPICAL PATCH TD SCH (10:24)
[2019-11-27] MEDS ORDERED: POTASSIUM CHLORIDE TABS 20 MEQ TABLET.ER (FP) PO ONE ×3 (10:56→17:30)
--- NOTE | 2019-11-27 10:56 | PN ---
S CIWA - CIWA Score Nausea/Vomitin-No Nausea/No Vomiting Muscle Tremors: 2 Anxiety: 3 Agitation: 0-Normal Activity Paroxysmal Sweats: 3 Orientation: 0-Oriented Tacttile Disturbances: 0-None Auditory Disturbances: 0-None Visual Disturbances: 0-None Headache: 2-Mild CIWA-Ar Total Score: 10 [facility] Progress Note (SOAP) Subjective: c/o sweats, anxiety, headache, and shakes. Objective: 11/27/19 10:51 Vital Signs 11/27/19 11/27/19 06:23 09:05 Temperature 97.1 F L 98.9 F Pulse Rate 91 H 76 Respiratory 16 18 Rate Blood Pressure 139/87 132/87 O2 Sat by Pulse 99 Oximetry (%) Laboratory Last Values WBC 10.3 K/mm3 (4.0-10.0) H 11/27/19 07:05 RBC 4.20 M/mm3 (4.00-5.60) 11/27/19 07:05 Hgb 14.3 GM/dL (11.7-16.9) 11/27/19 07:05 Hct 41.8 % (35.4-49) 11/27/19 07:05 MCV 99.3 fl (80-96) H 11/27/19 07:05 MCH 34.1 pg (25.7-33.7) H 11/27/19 07:05 MCHC 34.3 g/dl (32.0-35.9) 11/27/19 07:05 RDW 13.4 % (11.9-15.9) 11/27/19 07:05 Plt Count 168 K/MM3 (134-434) D 11/27/19 07:05 MPV 9.8 fl (7.5-11.1) 11/27/19 07:05 Sodium 139 mmol/L (136-145) 11/27/19 07:05 Potassium 3.3 mmol/L (3.5-5.1) L 11/27/19 07:05 Chloride 99 mmol/L (98-107) 11/27/19 07:05 Carbon Dioxide 32 mmol/L (21-32) 11/27/19 07:05 Anion Gap 7 MMOL/L (8-16) L 11/27/19 07:05 BUN 17.8 mg/dL (7-18) 11/27/19 07:05 Creatinine 0.7 mg/dL (0.55-1.3) 11/27/19 07:05 Est GFR (CKD-EPI)AfAm 124.87 11/27/19 07:05 Est GFR (CKD-EPI)NonAf 107.74 11/27/19 07:05 Random Glucose 92 mg/dL (74-106) 11/27/19 07:05 Calcium 9.3 mg/dL (8.5-10.1) 11/27/19 07:05 Total Bilirubin 1.0 mg/dL (0.2-1) 11/27/19 07:05 AST 52 U/L (15-37) H 11/27/19 07:05 ALT 44 U/L (13-61) 11/27/19 07:05 Alkaline Phosphatase 122 U/L (45-117) H 11/27/19 07:05 Total Protein 6.6 g/dl (6.4-8.2) 11/27/19 07:05 Albumin 3.2 g/dl (3.4-5.0) L 11/27/19 07:05 Syphilis Serology Non-reactive (NONREACTIVE) 11/27/19 07:05 Labs noted with low K+ level and elevated wbc. Assessment: 11/27/19 10:52 AOX3, in no acute respiratory distress. Full ROM, ambulating in the unit. Withdrawal symptoms. Hypokalemia Leukocytosis Plan: continue detox. Give potassium chloride 40meq po [id number] 4hrs apart. Repeat K+ level and cbc in AM.
[2019-11-27] MEDS: MELATONIN 5 MG TABLETS PO SCH (22:24)
[2019-11-27] MEDS: THIAMINE HCL 100 MG TABLET (FP) PO SCH (22:27)
[2019-11-28] MEDS: chlordiazePOXIDE HCL 25 MG CAPSULE PO SCH ×4 (05:11→22:03)
--- NOTE | 2019-11-28 09:23 | PN ---
S CIWA - CIWA Score Nausea/Vomitin-Mild Nausea/No Vomiting Muscle Tremors: 2 Anxiety: 2 Agitation: 1-Slight > Activity Paroxysmal Sweats: 1-Minimal Palms Moist Orientation: 0-Oriented Tacttile Disturbances: 0-None Auditory Disturbances: 0-None Visual Disturbances: 1-Very Mild Sensitivity Headache: 1-Very Mild CIWA-Ar Total Score: 9 BHS Progress Note (SOAP) Subjective: 54 years old male was admitted on 11/26/19 for alcohol withdrawal sx management treating with [facility] ate breakfast tolerated food well discuss aftercare with staff mr lima prefers to go to [facility] for alcohol abuse treatment Objective: 11/28/19 09:20 Vital Signs - 24 hr 11/27/19 11/27/19 11/27/19 12:58 16:42 20:49 Temperature 98.0 F 97.1 F L 97.3 F L Pulse Rate 71 75 73 Respiratory 18 16 18 Rate Blood Pressure 126/79 130/81 138/83 O2 Sat by Pulse 96 97 Oximetry (%) 11/28/19 11/28/19 06:10 08:43 Temperature 97.7 F 97.3 F L Pulse Rate 74 77 Respiratory 18 18 Rate Blood Pressure 116/85 120/76 O2 Sat by Pulse 99 Oximetry (%) Laboratory Tests 11/27/19 11/27/19 11/27/19 07:05 07:05 07:05 WBC 10.3 H RBC 4.20 Hgb 14.3 Hct 41.8 MCV 99.3 H MCH 34.1 H MCHC 34.3 RDW 13.4 Plt Count 168 D MPV 9.8 Sodium 139 Potassium 3.3 L Chloride 99 Carbon Dioxide 32 Anion Gap 7 L BUN 17.8 Creatinine 0.7 Est GFR (CKD-EPI)AfAm 124.87 Est GFR (CKD-EPI)NonAf 107.74 Random Glucose 92 Calcium 9.3 Total Bilirubin 1.0 AST 52 H ALT 44 Alkaline Phosphatase 122 H Total Protein 6.6 Albumin 3.2 L Syphilis Serology Non-reactive 11/28/19 09:21 covid pending K+ 3.3 treated with potassium 40meq po x 2 11/28/19 09:22 repeat K+ pending Assessment: 11/28/19 09:22 alcohol withdrawal hypokalemia Plan: librium regiment repeat K+ pending
[2019-11-28] MEDS: PRENATAL VITAMINS W/ FOLIC ACID TABLET (FP) PO SCH (10:23)
[2019-11-28] MEDS: NICOTINE 21 MG/24 HOURS TOPICAL PATCH TD SCH (10:23)
[2019-11-28 13:56] LABS: BASO % 0.7 % (0-2.0); EOS % 4.1 % (0-4.5); HEMATOCRIT 44.7 % (35.4-49); MCH 33.7 pg (25.7-33.7); MCHC 33.6 g/dl (32.0-35.9); MEAN CELL VOLUME 100.2 fl (80-96); MEAN PLT VOLUME 10.6 fl (7.5-11.1); MONO % 5.3 % (3.8-10.2); NEUT % 62.9 % (42.8-82.8); PLATELET COUNT 159 K/MM3 (134-434); RBC 4.46 M/mm3 (4.00-5.60); RDW 13.1 % (11.9-15.9); WHITE BLOOD COUNT 9.1 K/mm3 (4.0-10.0)
[2019-11-28] MEDS: THIAMINE HCL 100 MG TABLET (FP) PO SCH (22:02)
[2019-11-28] MEDS: MELATONIN 5 MG TABLETS PO SCH (22:02)
[2019-11-29] MEDS ORDERED: chlordiazePOXIDE HCL 10 MG CAPSULE PO PRN
[2019-11-29] MEDS: chlordiazePOXIDE HCL 10 MG CAPSULE PO SCH ×4 (06:45→22:03)
[2019-11-29] MEDS: PRENATAL VITAMINS W/ FOLIC ACID TABLET (FP) PO SCH (10:10)
[2019-11-29] MEDS: NICOTINE 21 MG/24 HOURS TOPICAL PATCH TD SCH (10:10)
--- NOTE | 2019-11-29 10:18 | PN ---
S CIWA - CIWA Score Nausea/Vomitin-No Nausea/No Vomiting Muscle Tremors: 2 Anxiety: 2 Agitation: 1-Slight > Activity Paroxysmal Sweats: 1-Minimal Palms Moist Orientation: 0-Oriented Tacttile Disturbances: 0-None Auditory Disturbances: 0-None Visual Disturbances: 1-Very Mild Sensitivity Headache: 1-Very Mild CIWA-Ar Total Score: 8 BHS Progress Note (SOAP) Subjective: 54 years old male was admitted on 11/26/19 for alcohol withdrawal sx management treating with librium detox regiment feels tired today had trouble sleeping last night limited conversation with staff encourage mr lima to consider [facility] for alcohol abuse treatment Objective: 11/29/19 10:19 Vital Signs - 24 hr 11/28/19 11/28/19 11/28/19 13:00 17:02 20:47 Temperature 98.2 F 97.7 F 96.9 F L Pulse Rate 69 85 87 Respiratory 18 18 18 Rate Blood Pressure 114/77 130/89 115/82 O2 Sat by Pulse 96 98 Oximetry (%) 11/29/19 11/29/19 06:19 08:54 Temperature 96.8 F L 98.4 F Pulse Rate 61 67 Respiratory 16 18 Rate Blood Pressure 104/67 114/72 O2 Sat by Pulse 98 Oximetry (%) Laboratory Tests 11/26/19 11/27/19 11/27/19 17:45 07:05 07:05 WBC 10.3 H RBC 4.20 Hgb 14.3 Hct 41.8 MCV 99.3 H MCH 34.1 H MCHC 34.3 RDW 13.4 Plt Count 168 D MPV 9.8 Absolute Neuts (auto) Neutrophils % Lymphocytes % Monocytes % Eosinophils % Basophils % Nucleated RBC % Sodium Potassium Chloride Carbon Dioxide Anion Gap BUN Creatinine Est GFR (CKD-EPI)AfAm Est GFR (CKD-EPI)NonAf Random Glucose Calcium Total Bilirubin AST ALT Alkaline Phosphatase Total Protein Albumin Syphilis Serology Non-reactive COVID-19 (URI) Not detected 11/27/19 11/28/19 11/28/19 07:05 07:00 07:00 WBC 9.1 RBC 4.46 Hgb 15.0 Hct 44.7 MCV 100.2 H MCH 33.7 MCHC 33.6 RDW 13.1 Plt Count 159 MPV 10.6 Absolute Neuts (auto) 5.7 Neutrophils % 62.9 D Lymphocytes % 27.0 D Monocytes % 5.3 Eosinophils % 4.1 Basophils % 0.7 Nucleated RBC % 0 Sodium 139 Potassium 3.3 L 4.2 Chloride 99 Carbon Dioxide 32 Anion Gap 7 L BUN 17.8 Creatinine 0.7 Est GFR (CKD-EPI)AfAm 124.87 Est GFR (CKD-EPI)NonAf 107.74 Random Glucose 92 Calcium 9.3 Total Bilirubin 1.0 AST 52 H ALT 44 Alkaline Phosphatase 122 H Total Protein 6.6 Albumin 3.2 L Syphilis Serology COVID-19 (URI) low K+ treated with K+ supplement current K+ within acceptable range Assessment: 11/29/19 10:20 alcohol withdrawal Plan: [facility]
[2019-11-29] MEDS: MELATONIN 5 MG TABLETS PO SCH (22:03)
[2019-11-29] MEDS: THIAMINE HCL 100 MG TABLET (FP) PO SCH (22:03)
[2019-11-30] MEDS: chlordiazePOXIDE HCL 10 MG CAPSULE PO SCH ×2 (05:09→17:30)
--- NOTE | 2019-11-30 10:05 | PN ---
S CIWA - CIWA Score Nausea/Vomitin-No Nausea/No Vomiting Muscle Tremors: 2 Anxiety: 1-Mildly Anxious Agitation: 0-Normal Activity Paroxysmal Sweats: No Perspiration Orientation: 0-Oriented Tacttile Disturbances: 0-None Auditory Disturbances: 0-None Visual Disturbances: 2-Mild Sensitivity Headache: 1-Very Mild CIWA-Ar Total Score: 6 BHS Progress Note (SOAP) Subjective: 54 years old male was admitted on 11/26/19 for alcohol withdrawal sx management treating with librium detox regiment feels better today discussing aftercare with staff mr lima prefers to go to [facility] for alcohol abuse treatment Objective: 11/30/19 10:03 Vital Signs - 24 hr 11/29/19 11/29/19 11/29/19 12:33 16:46 20:54 Temperature 97.1 F L 97.5 F L 96.8 F L Pulse Rate 88 68 80 Respiratory 18 17 17 Rate Blood Pressure 107/75 104/69 119/76 O2 Sat by Pulse 97 98 Oximetry (%) 11/30/19 11/30/19 06:08 08:33 Temperature 97.3 F L 97.1 F L Pulse Rate 75 69 Respiratory 18 18 Rate Blood Pressure 105/73 99/71 O2 Sat by Pulse 97 Oximetry (%) Laboratory Tests 11/26/19 11/27/19 11/27/19 17:45 07:05 07:05 WBC 10.3 H RBC 4.20 Hgb 14.3 Hct 41.8 MCV 99.3 H MCH 34.1 H MCHC 34.3 RDW 13.4 Plt Count 168 D MPV 9.8 Absolute Neuts (auto) Neutrophils % Lymphocytes % Monocytes % Eosinophils % Basophils % Nucleated RBC % Sodium Potassium Chloride Carbon Dioxide Anion Gap BUN Creatinine Est GFR (CKD-EPI)AfAm Est GFR (CKD-EPI)NonAf Random Glucose Calcium Total Bilirubin AST ALT Alkaline Phosphatase Total Protein Albumin Syphilis Serology Non-reactive COVID-19 (URI) Not detected 11/27/19 11/28/19 11/28/19 07:05 07:00 07:00 WBC 9.1 RBC 4.46 Hgb 15.0 Hct 44.7 MCV 100.2 H MCH 33.7 MCHC 33.6 RDW 13.1 Plt Count 159 MPV 10.6 Absolute Neuts (auto) 5.7 Neutrophils % 62.9 D Lymphocytes % 27.0 D Monocytes % 5.3 Eosinophils % 4.1 Basophils % 0.7 Nucleated RBC % 0 Sodium 139 Potassium 3.3 L 4.2 Chloride 99 Carbon Dioxide 32 Anion Gap 7 L BUN 17.8 Creatinine 0.7 Est GFR (CKD-EPI)AfAm 124.87 Est GFR (CKD-EPI)NonAf 107.74 Random Glucose 92 Calcium 9.3 Total Bilirubin 1.0 AST 52 H ALT 44 Alkaline Phosphatase 122 H Total Protein 6.6 Albumin 3.2 L Syphilis Serology COVID-19 (URI) 11/30/19 10:04 K+ within acceptable range Assessment: 11/30/19 10:04 alcohol withdrawal Plan: [facility]rium regiment
[2019-11-30] MEDS: NICOTINE 21 MG/24 HOURS TOPICAL PATCH TD SCH (10:38)
[2019-11-30] MEDS: PRENATAL VITAMINS W/ FOLIC ACID TABLET (FP) PO SCH (11:21)
[2019-11-30] MEDS: THIAMINE HCL 100 MG TABLET (FP) PO SCH (22:04)
[2019-11-30] MEDS: MELATONIN 5 MG TABLETS PO SCH (22:04)
[2019-12-01] MEDS ORDERED: chlordiazePOXIDE HCL 10 MG CAPSULE PO ONE (05:00)
[2019-12-01 09:03] VITALS: BP 112/78; PULSE 73; TEMP 96.9
--- NOTE | 2019-12-01 09:29 | DS ---
[facility] Detox Discharge Summary Admission Date: 11/26/19 Discharge Date: 12/01/19 - History Present History: Alcohol Dependence, Cannabis Dependence Additional Comments: alert,oriented x 3 ambulation on the unit lung clear on auscultation bilaterally abdomen soft,no pain,no tenderness no edema of legs detox completed,no withdrawal symptom stable for discharge today follow up with after care program as arrangement [facility] total time spending on discharge 35 minutes Pertinent Past History: nicotine dependence - Physical Exam Results Vital Signs: Vital Signs Temperature 96.9 F L 12/01/19 08:44 Pulse Rate 73 12/01/19 08:44 Respiratory Rate 18 12/01/19 08:44 Blood Pressure 112/78 12/01/19 08:44 O2 Sat by Pulse Oximetry (%) 98 12/01/19 08:44 - Treatment Hospital Course: Detox Protocol Followed, Detoxed Safely, Responded well, Discharged Condition Good, Rehab Referral Accepted Patient has Accepted a Re[facility] Referral to: [facility] - Medication Discharge Medications: Ambulatory Orders NK [No Known Home Medication] 02/13/16 - Diagnosis (1) Alcohol dependence with uncomplicated withdrawal Current Visit: Yes Status: Acute (2) Cannabis dependence Current Visit: Yes Status: Chronic (3) Nicotine dependence Current Visit: Yes Status: Chronic (4) syncope Current Visit: No Status: Chronic - AMA Did Patient Leave Against Medical Advice: No
--- NOTE | 2019-12-01 09:29 | PN ---
[facility] CIWA - CIWA Score Nausea/Vomitin-No Nausea/No Vomiting Muscle Tremors: None Anxiety: 1-Mildly Anxious Agitation: 0-Normal Activity Paroxysmal Sweats: No Perspiration Orientation: 0-Oriented Tacttile Disturbances: 0-None Auditory Disturbances: 0-None Visual Disturbances: 0-None Headache: 0-None Present CIWA-Ar Total Score: 1 S Progress Note (SOAP) Subjective: alert,no complaint Objective: 12/01/19 09:34 Vital Signs Temperature 96.9 F L 12/01/19 08:44 Pulse Rate 73 12/01/19 08:44 Respiratory Rate 18 12/01/19 08:44 Blood Pressure 112/78 12/01/19 08:44 O2 Sat by Pulse Oximetry (%) 98 12/01/19 08:44 Assessment: 12/01/19 09:34 detox completed,no withdrawal symptom Plan: stable for discharge today,follow up with after care program [facility] as arrangement
[2019-12-01] MEDS: PRENATAL VITAMINS W/ FOLIC ACID TABLET (FP) PO SCH (10:03)
[2019-12-01] MEDS: NICOTINE 21 MG/24 HOURS TOPICAL PATCH TD SCH (10:03)
== END 2019-12-01 10:52 | disposition other institution (70) | DRG 775 ==
LOC: YASAS 12:04 → Y3N 17:27
PROVIDERS: ADMIT Allergy & Immunology; ATTEND Allergy & Immunology
PROC: HZ2ZZZZ Detoxification Services for Substance Abuse Treatment (ICD-10-PCS; principal; 2019-11-26)
DX: F10.230 Alcohol dependence with withdrawal, uncomplicated (principal); F12.20 Cannabis dependence, uncomplicated; F17.210 Nicotine dependence, cigarettes, uncomplicated; D72.829 Elevated white blood cell count, unspecified; E87.6 Hypokalemia; Z98.890 Other specified postprocedural states
CPT/HCPCS: 36415; 80053; 84132; 85025; 85027; 86780; C9803; U0003

== ENCOUNTER 2020-05-08 10:57 | Inpatient (IN) | payer OTHER ==
[2020-05-08 11:19] VITALS: BMI 23.7
[2020-05-08] MEDS ORDERED: MENTHOL/PHENOL 1 EACH UD MM PRN (11:53)
[2020-05-08] MEDS ORDERED: ONDANSETRON *ODT* 4 MG TABLET SL PRN (11:53)
[2020-05-08] MEDS ORDERED: ACETAMINOPHEN 325 MG TABLET (FP) PO PRN ×2 (11:53)
[2020-05-08] MEDS ORDERED: chlordiazePOXIDE HCL 25 MG CAPSULE PO PRN (11:53)
[2020-05-08] MEDS ORDERED: NICOTINE POLACRILEX 2 MG GUM BUC PRN (11:53)
[2020-05-08] MEDS ORDERED: BISMUTH SUBSALICYLATE 524 MG/30 ML UD PO PRN (11:53)
[2020-05-08] MEDS ORDERED: MAGNESIUM CITRATE 300 ML BOTTLE PO PRN (11:53)
[2020-05-08] MEDS ORDERED: MAGNESIUM HYDROX 2400MG/30ML ORAL SUSPENSION 30 ML CUP PO PRN (11:53)
[2020-05-08] MEDS ORDERED: MAG HYDROX/AL HYDROX/SIMETH 30 ML UNIT-DOSE CUP PO PRN (11:53)
[2020-05-08] MEDS: hydrOXYzine PAMOATE 25 MG CAPSULE (FP) PO SCH ×3 (13:07→22:18)
[2020-05-08] MEDS: NICOTINE 21 MG/24 HOURS TOPICAL PATCH TD SCH (13:08)
[2020-05-08 14:50] LABS: HEMATOCRIT 48.2 % (35.4-49); MCH 31.2 pg (25.7-33.7); MCHC 33.2 g/dl (32.0-35.9); MEAN PLT VOLUME 9.3 fl (7.5-11.1); PLATELET COUNT 202 K/MM3 (134-434); POTASSIUM 3.4 mmol/L (3.5-5.1); RBC 5.13 M/mm3 (4.00-5.60); RDW 14.3 % (11.9-15.9); WHITE BLOOD COUNT 11.1 K/mm3 (4.0-10.0)
[2020-05-08 14:52] LABS: CALCIUM 8.7 mg/dL (8.5-10.1)
[2020-05-08 14:53] LABS: ALBUMIN 4.2 g/dl (3.4-5.0); BLOOD UREA NITROGEN 10.4 mg/dL (7-18)
[2020-05-08 14:56] LABS: CREATININE 0.9 mg/dL (0.55-1.3)
[2020-05-08 14:57] LABS: BILIRUBIN,TOTAL 0.4 mg/dL (0.2-1)
[2020-05-08 14:58] LABS: TOT PROT 8.1 g/dl (6.4-8.2)
[2020-05-08] MEDS: chlordiazePOXIDE HCL 25 MG CAPSULE PO SCH ×2 (18:01→22:18)
[2020-05-08] MEDS: THIAMINE HCL 100 MG TABLET (FP) PO SCH (22:18)
[2020-05-08] MEDS: MELATONIN 5 MG TABLETS PO SCH (22:19)
[2020-05-09] MEDS: hydrOXYzine PAMOATE 25 MG CAPSULE (FP) PO SCH ×5 (05:14→22:20)
[2020-05-09] MEDS: chlordiazePOXIDE HCL 25 MG CAPSULE PO SCH ×4 (05:15→22:20)
[2020-05-09] MEDS ORDERED: POTASSIUM CHLORIDE ORAL LIQUID 20 MEQ/15 ML PO ONE ×2 (09:09→14:00)
[2020-05-09] MEDS: PRENATAL VITAMINS W/ FOLIC ACID TABLET (FP) PO SCH (10:12)
[2020-05-09] MEDS: NICOTINE 21 MG/24 HOURS TOPICAL PATCH TD SCH (10:12)
[2020-05-09] MEDS: METHOCARBAMOL 500 MG TABLET PO PRN (14:26)
[2020-05-09] MEDS: IBUPROFEN 400 MG TABLET (FP) PO PRN (22:20)
[2020-05-09] MEDS: THIAMINE HCL 100 MG TABLET (FP) PO SCH (22:20)
[2020-05-09] MEDS: MELATONIN 5 MG TABLETS PO SCH (23:18)
[2020-05-10] MEDS: chlordiazePOXIDE HCL 25 MG CAPSULE PO SCH ×4 (05:47→22:14)
[2020-05-10] MEDS: hydrOXYzine PAMOATE 25 MG CAPSULE (FP) PO SCH ×5 (05:48→22:15)
[2020-05-10] MEDS: PRENATAL VITAMINS W/ FOLIC ACID TABLET (FP) PO SCH (10:13)
[2020-05-10] MEDS: NICOTINE 21 MG/24 HOURS TOPICAL PATCH TD SCH (10:14)
[2020-05-10] MEDS: THIAMINE HCL 100 MG TABLET (FP) PO SCH (22:14)
[2020-05-10] MEDS: MELATONIN 5 MG TABLETS PO SCH (22:16)
[2020-05-11] MEDS ORDERED: chlordiazePOXIDE HCL 10 MG CAPSULE PO PRN
[2020-05-11] MEDS: chlordiazePOXIDE HCL 10 MG CAPSULE PO SCH ×4 (05:25→22:04)
[2020-05-11] MEDS: hydrOXYzine PAMOATE 25 MG CAPSULE (FP) PO SCH ×5 (05:25→22:03)
[2020-05-11] MEDS: PRENATAL VITAMINS W/ FOLIC ACID TABLET (FP) PO SCH (10:10)
[2020-05-11] MEDS: NICOTINE 21 MG/24 HOURS TOPICAL PATCH TD SCH (10:12)
[2020-05-11 10:30] LABS: HEMATOCRIT 41.9 % (35.4-49); HEMOGLOBIN 13.9 GM/dL (11.7-16.9); MCH 31.5 pg (25.7-33.7); MCHC 33.3 g/dl (32.0-35.9); MEAN CELL VOLUME 94.4 fl (80-96); MEAN PLT VOLUME 10.1 fl (7.5-11.1); PLATELET COUNT 106 K/MM3 (134-434); RBC 4.43 M/mm3 (4.00-5.60); RDW 14.2 % (11.9-15.9); WHITE BLOOD COUNT 7.8 K/mm3 (4.0-10.0)
[2020-05-11 10:32] LABS: POTASSIUM 3.9 mmol/L (3.5-5.1)
[2020-05-11 10:36] LABS: CALCIUM 9.1 mg/dL (8.5-10.1)
[2020-05-11 10:39] LABS: CREATININE 0.7 mg/dL (0.55-1.3)
[2020-05-11] MEDS: IBUPROFEN 400 MG TABLET (FP) PO PRN (15:07)
[2020-05-11] MEDS: METHOCARBAMOL 500 MG TABLET PO PRN (15:07)
[2020-05-11] MEDS: THIAMINE HCL 100 MG TABLET (FP) PO SCH (22:03)
[2020-05-11] MEDS: MELATONIN 5 MG TABLETS PO SCH (22:04)
[2020-05-12] MEDS ORDERED: chlordiazePOXIDE HCL 10 MG CAPSULE PO SCH (05:00)
[2020-05-12] MEDS: hydrOXYzine PAMOATE 25 MG CAPSULE (FP) PO SCH (05:16)
[2020-05-12 09:13] VITALS: BP 107/70; PULSE 100; TEMP 98
[2020-05-13] MEDS ORDERED: chlordiazePOXIDE HCL 10 MG CAPSULE PO ONE (05:00)
[2020-05-13 07:08] LABS: SARS-CoV-2 NAA Not Detected (Not Detected)
== END 2020-05-12 08:49 | disposition home or self-care (01) | DRG 775 ==
LOC: YASAS 10:57 → Y6N 11:37
PROVIDERS: ADMIT Allergy & Immunology; ATTEND Allergy & Immunology
PROC: HZ2ZZZZ Detoxification Services for Substance Abuse Treatment (ICD-10-PCS; principal; 2020-05-08)
DX: F10.230 Alcohol dependence with withdrawal, uncomplicated (principal); F12.20 Cannabis dependence, uncomplicated; F17.210 Nicotine dependence, cigarettes, uncomplicated; D72.829 Elevated white blood cell count, unspecified; E87.6 Hypokalemia; Z87.820 Personal history of traumatic brain injury; Z98.890 Other specified postprocedural states
CPT/HCPCS: 36415; 80048; 80053; 84132; 85027; 86780; 93005; 93010; C9803; U0003; U0005

== ENCOUNTER 2020-06-26 11:02 | Inpatient (IN) | payer OTHER ==
[2020-06-26] MEDS ORDERED: MAG HYDROX/AL HYDROX/SIMETH 30 ML UNIT-DOSE CUP PO PRN (11:43)
[2020-06-26] MEDS ORDERED: ONDANSETRON *ODT* 4 MG TABLET SL PRN (11:43)
[2020-06-26] MEDS ORDERED: BISMUTH SUBSALICYLATE 262 MG/15 ML BTL PO PRN (11:43)
[2020-06-26] MEDS ORDERED: IBUPROFEN 400 MG TABLET (FP) PO PRN (11:43)
[2020-06-26] MEDS ORDERED: MAGNESIUM HYDROX 2400MG/30ML ORAL SUSPENSION 30 ML CUP PO PRN (11:43)
[2020-06-26] MEDS ORDERED: METHOCARBAMOL 500 MG TABLET PO PRN (11:43)
[2020-06-26] MEDS ORDERED: MENTHOL/PHENOL 1 EACH UD MM PRN (11:43)
[2020-06-26] MEDS ORDERED: MAGNESIUM CITRATE 300 ML BOTTLE PO PRN (11:43)
[2020-06-26] MEDS ORDERED: ACETAMINOPHEN 325 MG TABLET (FP) PO PRN ×2 (11:43)
[2020-06-26 11:44] VITALS: BMI 28.8
[2020-06-26] MEDS: diazePAM 5 MG TABLET PO SCH ×3 (13:24→22:12)
[2020-06-26] MEDS: PRENATAL VITAMINS W/ FOLIC ACID TABLET (FP) PO SCH (13:27)
[2020-06-26] MEDS: hydrOXYzine PAMOATE 25 MG CAPSULE (FP) PO SCH ×3 (13:34→22:11)
[2020-06-26 17:03] LABS: HEMATOCRIT 43.4 % (35.4-49); HEMOGLOBIN 14.8 GM/dL (11.7-16.9); MCHC 34.1 g/dl (32.0-35.9); MEAN CELL VOLUME 96.7 fl (80-96); MEAN PLT VOLUME 9.7 fl (7.5-11.1); PLATELET COUNT 226 K/MM3 (134-434); RBC 4.48 M/mm3 (4.00-5.60); RDW 15.4 % (11.9-15.9); WHITE BLOOD COUNT 8.2 K/mm3 (4.0-10.0)
[2020-06-26 17:06] LABS: ALBUMIN 4.1 g/dl (3.4-5.0); BLOOD UREA NITROGEN 8.4 mg/dL (7-18); CALCIUM 8.2 mg/dL (8.5-10.1)
[2020-06-26 17:08] LABS: BILIRUBIN,TOTAL 0.2 mg/dL (0.2-1); CREATININE 0.8 mg/dL (0.55-1.3)
[2020-06-26 17:11] LABS: TOT PROT 7.7 g/dl (6.4-8.2)
[2020-06-26] MEDS: THIAMINE HCL 100 MG TABLET (FP) PO SCH (22:11)
[2020-06-26] MEDS: MELATONIN 5 MG TABLETS PO SCH (22:12)
[2020-06-27] MEDS: hydrOXYzine PAMOATE 25 MG CAPSULE (FP) PO SCH ×5 (05:19→22:21)
[2020-06-27] MEDS: diazePAM 5 MG TABLET PO SCH ×4 (05:20→22:21)
[2020-06-27] MEDS: PRENATAL VITAMINS W/ FOLIC ACID TABLET (FP) PO SCH (10:13)
[2020-06-27] MEDS: THIAMINE HCL 100 MG TABLET (FP) PO SCH (22:21)
[2020-06-27] MEDS: MELATONIN 5 MG TABLETS PO SCH (22:22)
[2020-06-28] MEDS: hydrOXYzine PAMOATE 25 MG CAPSULE (FP) PO SCH ×5 (05:26→22:14)
[2020-06-28] MEDS: diazePAM 5 MG TABLET PO SCH ×3 (05:26→22:15)
[2020-06-28] MEDS: PRENATAL VITAMINS W/ FOLIC ACID TABLET (FP) PO SCH (10:40)
[2020-06-28] MEDS: diazePAM 5 MG TABLET PO PRN (10:42)
[2020-06-28] MEDS: THIAMINE HCL 100 MG TABLET (FP) PO SCH (22:15)
[2020-06-28] MEDS: MELATONIN 5 MG TABLETS PO SCH (22:15)
[2020-06-29] MEDS: hydrOXYzine PAMOATE 25 MG CAPSULE (FP) PO SCH ×5 (05:22→22:18)
[2020-06-29] MEDS: diazePAM 5 MG TABLET PO SCH ×2 (05:23→18:02)
[2020-06-29] MEDS: PRENATAL VITAMINS W/ FOLIC ACID TABLET (FP) PO SCH (10:34)
[2020-06-29] MEDS: diazePAM 5 MG TABLET PO PRN (10:36)
[2020-06-29] MEDS: THIAMINE HCL 100 MG TABLET (FP) PO SCH (22:18)
[2020-06-29] MEDS: MELATONIN 5 MG TABLETS PO SCH (22:18)
[2020-06-30] MEDS ORDERED: diazePAM 5 MG TABLET PO ONE (06:00)
[2020-06-30] MEDS: hydrOXYzine PAMOATE 25 MG CAPSULE (FP) PO SCH ×5 (06:12→22:42)
[2020-06-30] MEDS: PRENATAL VITAMINS W/ FOLIC ACID TABLET (FP) PO SCH (11:05)
[2020-06-30] MEDS: MELATONIN 5 MG TABLETS PO SCH (22:42)
[2020-06-30] MEDS: THIAMINE HCL 100 MG TABLET (FP) PO SCH (22:42)
[2020-07-01 06:07] LABS: SARS-CoV-2 NAA Not Detected (Not Detected)
[2020-07-01] MEDS: hydrOXYzine PAMOATE 25 MG CAPSULE (FP) PO SCH ×2 (06:07→10:32)
[2020-07-01] MEDS: PRENATAL VITAMINS W/ FOLIC ACID TABLET (FP) PO SCH (10:32)
[2020-07-01 11:44] VITALS: BP 108/76; PULSE 76; TEMP 96.2
== END 2020-07-01 13:03 | disposition other institution (70) | DRG 775 ==
LOC: YASAS 11:02 → Y6N 12:39
PROVIDERS: ADMIT Allergy & Immunology; ATTEND Allergy & Immunology
PROC: HZ2ZZZZ Detoxification Services for Substance Abuse Treatment (ICD-10-PCS; principal; 2020-06-26)
DX: F10.230 Alcohol dependence with withdrawal, uncomplicated (principal); F12.20 Cannabis dependence, uncomplicated; F17.210 Nicotine dependence, cigarettes, uncomplicated; F10.220 Alcohol dependence with intoxication, uncomplicated; M54.5 Low back pain; Z91.81 History of falling; Z87.820 Personal history of traumatic brain injury; Z98.890 Other specified postprocedural states
CPT/HCPCS: 36415; 71046-TC-FY; 80053; 85027; 86780; C9803; Q0162; U0003; U0005

== ENCOUNTER 2020-07-01 13:09 | Inpatient (IN) | payer OTHER ==
[2020-07-01] MEDS ORDERED: NICOTINE POLACRILEX 2 MG GUM BUC PRN (14:39)
[2020-07-01] MEDS ORDERED: MAGNESIUM CITRATE 300 ML BOTTLE PO PRN (14:39)
[2020-07-01] MEDS ORDERED: ACETAMINOPHEN 325 MG TABLET (FP) PO PRN (14:39)
[2020-07-01] MEDS ORDERED: guaiFENesin 200 MG/10 ML 10 ML UNIT-DOSE CUPS PO PRN (14:39)
[2020-07-01] MEDS ORDERED: LOPERAMIDE HCL 2 MG CAPSULE PO PRN (14:39)
[2020-07-01] MEDS ORDERED: IBUPROFEN 400 MG TABLET (FP) PO PRN (14:39)
[2020-07-01] MEDS ORDERED: P-EPHED 60MG/TRIPROLIDI 2.5MG TABLET PO PRN (14:39)
[2020-07-01] MEDS ORDERED: MAG HYDROX/AL HYDROX/SIMETH 30 ML UNIT-DOSE CUP PO PRN (14:39)
[2020-07-01] MEDS ORDERED: MENTHOL/PHENOL 1 EACH UD MM PRN (14:39)
[2020-07-01] MEDS ORDERED: MAGNESIUM HYDROX 2400MG/30ML ORAL SUSPENSION 30 ML CUP PO PRN (14:39)
[2020-07-01] MEDS: THIAMINE HCL 100 MG TABLET (FP) PO SCH (21:38)
[2020-07-01] MEDS: MELATONIN 5 MG TABLETS PO SCH (21:38)
[2020-07-02] MEDS: PRENATAL VITAMINS W/ FOLIC ACID TABLET (FP) PO SCH (10:05)
[2020-07-02] MEDS: NICOTINE 7 MG/24 HOURS TOPICAL PATCH TD SCH (10:06)
[2020-07-02] MEDS: THIAMINE HCL 100 MG TABLET (FP) PO SCH (21:35)
[2020-07-02] MEDS: MELATONIN 5 MG TABLETS PO SCH (21:35)
[2020-07-02] MEDS: hydrOXYzine PAMOATE 25 MG CAPSULE (FP) PO PRN (21:36)
[2020-07-03] MEDS: NICOTINE 7 MG/24 HOURS TOPICAL PATCH TD SCH (10:13)
[2020-07-03] MEDS: PRENATAL VITAMINS W/ FOLIC ACID TABLET (FP) PO SCH (10:13)
[2020-07-03] MEDS: THIAMINE HCL 100 MG TABLET (FP) PO SCH (21:38)
[2020-07-03] MEDS: hydrOXYzine PAMOATE 25 MG CAPSULE (FP) PO PRN (21:38)
[2020-07-03] MEDS: MELATONIN 5 MG TABLETS PO SCH (21:38)
[2020-07-04] MEDS: NICOTINE 7 MG/24 HOURS TOPICAL PATCH TD SCH (10:13)
[2020-07-04] MEDS: PRENATAL VITAMINS W/ FOLIC ACID TABLET (FP) PO SCH (10:13)
[2020-07-04] MEDS: MELATONIN 5 MG TABLETS PO SCH (21:36)
[2020-07-04] MEDS: hydrOXYzine PAMOATE 25 MG CAPSULE (FP) PO PRN (21:37)
[2020-07-04] MEDS: THIAMINE HCL 100 MG TABLET (FP) PO SCH (21:37)
[2020-07-05 05:07] LABS: SARS-CoV-2 NAA Not Detected (Not Detected)
[2020-07-05] MEDS: NICOTINE 7 MG/24 HOURS TOPICAL PATCH TD SCH (10:06)
[2020-07-05] MEDS: PRENATAL VITAMINS W/ FOLIC ACID TABLET (FP) PO SCH (10:06)
[2020-07-05] MEDS: THIAMINE HCL 100 MG TABLET (FP) PO SCH (21:34)
[2020-07-05] MEDS: hydrOXYzine PAMOATE 25 MG CAPSULE (FP) PO PRN (21:34)
[2020-07-05] MEDS: MELATONIN 5 MG TABLETS PO SCH (21:34)
[2020-07-06] MEDS: PRENATAL VITAMINS W/ FOLIC ACID TABLET (FP) PO SCH (10:05)
[2020-07-06] MEDS: NICOTINE 7 MG/24 HOURS TOPICAL PATCH TD SCH (10:05)
[2020-07-06] MEDS: hydrOXYzine PAMOATE 25 MG CAPSULE (FP) PO PRN (21:07)
[2020-07-06] MEDS: THIAMINE HCL 100 MG TABLET (FP) PO SCH (21:07)
[2020-07-06] MEDS: MELATONIN 5 MG TABLETS PO SCH (21:07)
[2020-07-07] MEDS: NICOTINE 7 MG/24 HOURS TOPICAL PATCH TD SCH (10:13)
[2020-07-07] MEDS: PRENATAL VITAMINS W/ FOLIC ACID TABLET (FP) PO SCH (10:13)
[2020-07-07] MEDS: hydrOXYzine PAMOATE 25 MG CAPSULE (FP) PO PRN (21:02)
[2020-07-07] MEDS: THIAMINE HCL 100 MG TABLET (FP) PO SCH (21:02)
[2020-07-07] MEDS: MELATONIN 5 MG TABLETS PO SCH (21:03)
[2020-07-08] MEDS: PRENATAL VITAMINS W/ FOLIC ACID TABLET (FP) PO SCH (10:08)
[2020-07-08] MEDS: NICOTINE 7 MG/24 HOURS TOPICAL PATCH TD SCH (10:09)
[2020-07-08] MEDS: THIAMINE HCL 100 MG TABLET (FP) PO SCH (21:25)
[2020-07-08] MEDS: hydrOXYzine PAMOATE 25 MG CAPSULE (FP) PO PRN (21:25)
[2020-07-08] MEDS: MELATONIN 5 MG TABLETS PO SCH (21:25)
[2020-07-09] MEDS: PRENATAL VITAMINS W/ FOLIC ACID TABLET (FP) PO SCH (10:01)
[2020-07-09] MEDS: NICOTINE 7 MG/24 HOURS TOPICAL PATCH TD SCH (10:02)
[2020-07-09] MEDS: MELATONIN 5 MG TABLETS PO SCH (21:33)
[2020-07-09] MEDS: hydrOXYzine PAMOATE 25 MG CAPSULE (FP) PO PRN (21:33)
[2020-07-09] MEDS: THIAMINE HCL 100 MG TABLET (FP) PO SCH (21:33)
[2020-07-10] MEDS: NICOTINE 7 MG/24 HOURS TOPICAL PATCH TD SCH (10:10)
[2020-07-10] MEDS: PRENATAL VITAMINS W/ FOLIC ACID TABLET (FP) PO SCH (10:10)
[2020-07-10] MEDS: hydrOXYzine PAMOATE 25 MG CAPSULE (FP) PO PRN (21:04)
[2020-07-10] MEDS: MELATONIN 5 MG TABLETS PO SCH (21:04)
[2020-07-10] MEDS: THIAMINE HCL 100 MG TABLET (FP) PO SCH (21:04)
[2020-07-11] MEDS: NICOTINE 7 MG/24 HOURS TOPICAL PATCH TD SCH (10:01)
[2020-07-11] MEDS: PRENATAL VITAMINS W/ FOLIC ACID TABLET (FP) PO SCH (10:01)
[2020-07-11] MEDS: MELATONIN 5 MG TABLETS PO SCH (21:24)
[2020-07-11] MEDS: THIAMINE HCL 100 MG TABLET (FP) PO SCH (21:24)
[2020-07-11] MEDS: hydrOXYzine PAMOATE 25 MG CAPSULE (FP) PO PRN (21:24)
[2020-07-12 06:50] VITALS: TEMP 97.3
[2020-07-12] MEDS: NICOTINE 7 MG/24 HOURS TOPICAL PATCH TD SCH (09:43)
[2020-07-12] MEDS: PRENATAL VITAMINS W/ FOLIC ACID TABLET (FP) PO SCH (09:43)
[2020-07-12] MEDS: MELATONIN 5 MG TABLETS PO SCH (21:35)
[2020-07-12] MEDS: THIAMINE HCL 100 MG TABLET (FP) PO SCH (21:35)
[2020-07-12] MEDS: hydrOXYzine PAMOATE 25 MG CAPSULE (FP) PO PRN (21:35)
[2020-07-13 07:16] VITALS: BP 118/84; PULSE 76
== END 2020-07-13 08:33 | disposition home or self-care (01) | DRG 772 ==
LOC: YASAS 13:09 → Y5N 13:10
PROVIDERS: ADMIT Allergy & Immunology; ATTEND Allergy & Immunology
PROC: HZ42ZZZ Group Counseling for Substance Abuse Treatment, Cognitive-Behavioral (ICD-10-PCS; principal; 2020-07-01)
DX: F10.20 Alcohol dependence, uncomplicated (principal); F12.20 Cannabis dependence, uncomplicated; F17.210 Nicotine dependence, cigarettes, uncomplicated; Z87.820 Personal history of traumatic brain injury; Z98.890 Other specified postprocedural states
CPT/HCPCS: C9803; U0003; U0005

== ENCOUNTER 2020-08-29 10:04 | Inpatient (IN) | payer OTHER ==
[2020-08-29 10:39] VITALS: BMI 31.3
[2020-08-29] MEDS ORDERED: MAGNESIUM CITRATE 300 ML BOTTLE PO PRN (12:18)
[2020-08-29] MEDS ORDERED: diazePAM 5 MG TABLET PO PRN (12:18)
[2020-08-29] MEDS ORDERED: MAG HYDROX/AL HYDROX/SIMETH 30 ML UNIT-DOSE CUP PO PRN (12:18)
[2020-08-29] MEDS ORDERED: ACETAMINOPHEN 325 MG TABLET (FP) PO PRN ×2 (12:18)
[2020-08-29] MEDS ORDERED: BISMUTH SUBSALICYLATE 262 MG/15 ML BTL PO PRN (12:18)
[2020-08-29] MEDS ORDERED: MAGNESIUM HYDROX 2400MG/30ML ORAL SUSPENSION 30 ML CUP PO PRN (12:18)
[2020-08-29] MEDS ORDERED: NICOTINE POLACRILEX 2 MG GUM BUC PRN (12:18)
[2020-08-29] MEDS ORDERED: MENTHOL/PHENOL 1 EACH UD MM PRN (12:18)
[2020-08-29] MEDS ORDERED: ONDANSETRON *ODT* 4 MG TABLET SL PRN (12:18)
[2020-08-29] MEDS: PRENATAL VITAMINS W/ FOLIC ACID TABLET (FP) PO SCH (13:21)
[2020-08-29] MEDS: hydrOXYzine PAMOATE 25 MG CAPSULE (FP) PO SCH ×3 (13:21→22:24)
[2020-08-29 16:16] LABS: HEMATOCRIT 42.3 % (35.4-49); HEMOGLOBIN 14.1 GM/dL (11.7-16.9); MCH 31.4 pg (25.7-33.7); MCHC 33.3 g/dl (32.0-35.9); MEAN CELL VOLUME 94.1 fl (80-96); MEAN PLT VOLUME 9.1 fl (7.5-11.1); PLATELET COUNT 168 10^3/uL (134-434); RDW 13.4 % (11.9-15.9); WHITE BLOOD COUNT 12.4 K/mm3 (4.0-10.0)
[2020-08-29 16:17] LABS: BLOOD UREA NITROGEN 8.5 mg/dL (7-18); CALCIUM 8.9 mg/dL (8.5-10.1)
[2020-08-29 16:20] LABS: CREATININE 0.7 mg/dL (0.55-1.3)
[2020-08-29 16:21] LABS: TOT PROT 7.2 g/dl (6.4-8.2)
[2020-08-29] MEDS: diazePAM 5 MG TABLET PO SCH ×2 (17:23→22:24)
[2020-08-29] MEDS: THIAMINE HCL 100 MG TABLET (FP) PO SCH (22:24)
[2020-08-29] MEDS: MELATONIN 5 MG TABLETS PO SCH (22:24)
[2020-08-30] MEDS: hydrOXYzine PAMOATE 25 MG CAPSULE (FP) PO SCH ×2 (06:27→10:38)
[2020-08-30] MEDS: diazePAM 5 MG TABLET PO SCH ×4 (06:28→22:26)
[2020-08-30] MEDS: PRENATAL VITAMINS W/ FOLIC ACID TABLET (FP) PO SCH (10:38)
[2020-08-30] MEDS: IBUPROFEN 400 MG TABLET (FP) PO PRN (10:39)
[2020-08-30] MEDS ORDERED: POTASSIUM CHLORIDE TABS 20 MEQ TABLET.ER (FP) PO ONE (12:43)
[2020-08-30] MEDS: THIAMINE HCL 100 MG TABLET (FP) PO SCH (22:25)
[2020-08-30] MEDS: METHOCARBAMOL 500 MG TABLET PO PRN (22:25)
[2020-08-30] MEDS: MELATONIN 5 MG TABLETS PO SCH (22:25)
[2020-08-30] MEDS: hydrOXYzine PAMOATE 25 MG CAPSULE (FP) PO PRN (22:25)
[2020-08-31] MEDS: diazePAM 5 MG TABLET PO SCH ×3 (05:47→22:11)
[2020-08-31] MEDS: hydrOXYzine PAMOATE 25 MG CAPSULE (FP) PO PRN ×2 (05:47→22:11)
[2020-08-31] MEDS: PRENATAL VITAMINS W/ FOLIC ACID TABLET (FP) PO SCH (09:23)
[2020-08-31 10:46] LABS: HEMATOCRIT 42.8 % (35.4-49); HEMOGLOBIN 14.2 GM/dL (11.7-16.9); MCH 31.4 pg (25.7-33.7); MCHC 33.2 g/dl (32.0-35.9); MEAN CELL VOLUME 94.6 fl (80-96); MEAN PLT VOLUME 9.5 fl (7.5-11.1); PLATELET COUNT 159 10^3/uL (134-434); RBC 4.52 M/mm3 (4.00-5.60); RDW 13.6 % (11.9-15.9); WHITE BLOOD COUNT 8.3 K/mm3 (4.0-10.0)
[2020-08-31] MEDS: METHOCARBAMOL 500 MG TABLET PO PRN (22:11)
[2020-08-31] MEDS: IBUPROFEN 400 MG TABLET (FP) PO PRN (22:11)
[2020-08-31] MEDS: THIAMINE HCL 100 MG TABLET (FP) PO SCH (22:11)
[2020-08-31] MEDS: MELATONIN 5 MG TABLETS PO SCH (22:12)
[2020-09-01] MEDS: diazePAM 5 MG TABLET PO SCH ×2 (06:19→17:50)
[2020-09-01] MEDS: PRENATAL VITAMINS W/ FOLIC ACID TABLET (FP) PO SCH (09:37)
[2020-09-01] MEDS: MELATONIN 5 MG TABLETS PO SCH (22:12)
[2020-09-01] MEDS: THIAMINE HCL 100 MG TABLET (FP) PO SCH (22:12)
[2020-09-01] MEDS: hydrOXYzine PAMOATE 25 MG CAPSULE (FP) PO PRN (22:14)
[2020-09-01] MEDS: METHOCARBAMOL 500 MG TABLET PO PRN (22:14)
[2020-09-02] MEDS ORDERED: diazePAM 5 MG TABLET PO ONE (06:00)
[2020-09-02 10:26] VITALS: BP 99/67; PULSE 81; TEMP 98
[2020-09-02] MEDS: PRENATAL VITAMINS W/ FOLIC ACID TABLET (FP) PO SCH (11:23)
== END 2020-09-02 12:13 | disposition home or self-care (01) | DRG 775 ==
LOC: YASAS 10:04 → Y3N 12:11
PROVIDERS: ADMIT Allergy & Immunology; ATTEND Allergy & Immunology
PROC: HZ2ZZZZ Detoxification Services for Substance Abuse Treatment (ICD-10-PCS; principal; 2020-08-29)
DX: F10.230 Alcohol dependence with withdrawal, uncomplicated (principal); F12.20 Cannabis dependence, uncomplicated; F17.210 Nicotine dependence, cigarettes, uncomplicated; R79.89 Other specified abnormal findings of blood chemistry; Z87.820 Personal history of traumatic brain injury; Z98.890 Other specified postprocedural states; Z59.0 Homelessness
CPT/HCPCS: 36415; 80053; 84132; 85027; 86780; C9803; U0003; U0005

== ENCOUNTER 2020-09-02 12:25 | Inpatient (IN) | payer OTHER ==
[2020-09-02] MEDS ORDERED: MAGNESIUM CITRATE 300 ML BOTTLE PO PRN (12:46)
[2020-09-02] MEDS ORDERED: IBUPROFEN 400 MG TABLET (FP) PO PRN (12:46)
[2020-09-02] MEDS ORDERED: MAG HYDROX/AL HYDROX/SIMETH 30 ML UNIT-DOSE CUP PO PRN (12:46)
[2020-09-02] MEDS ORDERED: MENTHOL/PHENOL 1 EACH UD MM PRN (12:46)
[2020-09-02] MEDS ORDERED: guaiFENesin 200 MG/10 ML 10 ML UNIT-DOSE CUPS PO PRN (12:46)
[2020-09-02] MEDS ORDERED: MAGNESIUM HYDROX 2400MG/30ML ORAL SUSPENSION 30 ML CUP PO PRN (12:46)
[2020-09-02] MEDS ORDERED: P-EPHED 60MG/TRIPROLIDI 2.5MG TABLET PO PRN (12:46)
[2020-09-02] MEDS ORDERED: ACETAMINOPHEN 325 MG TABLET (FP) PO PRN (12:46)
[2020-09-02] MEDS ORDERED: LOPERAMIDE HCL 2 MG CAPSULE PO PRN (12:46)
[2020-09-02] MEDS ORDERED: NICOTINE POLACRILEX 2 MG GUM BUC PRN (12:46)
[2020-09-02] MEDS: THIAMINE HCL 100 MG TABLET (FP) PO SCH (21:40)
[2020-09-02] MEDS: MELATONIN 5 MG TABLETS PO SCH (21:40)
[2020-09-02] MEDS: hydrOXYzine PAMOATE 25 MG CAPSULE (FP) PO PRN (21:40)
[2020-09-03] MEDS: PRENATAL VITAMINS W/ FOLIC ACID TABLET (FP) PO SCH (09:50)
[2020-09-03] MEDS: hydrOXYzine PAMOATE 25 MG CAPSULE (FP) PO PRN (21:43)
[2020-09-03] MEDS: MELATONIN 5 MG TABLETS PO SCH (21:43)
[2020-09-03] MEDS: THIAMINE HCL 100 MG TABLET (FP) PO SCH (21:43)
[2020-09-04] MEDS: PRENATAL VITAMINS W/ FOLIC ACID TABLET (FP) PO SCH (10:13)
[2020-09-04] MEDS: THIAMINE HCL 100 MG TABLET (FP) PO SCH (21:22)
[2020-09-04] MEDS: MELATONIN 5 MG TABLETS PO SCH (21:22)
[2020-09-04] MEDS: hydrOXYzine PAMOATE 25 MG CAPSULE (FP) PO PRN (21:23)
[2020-09-05] MEDS: PRENATAL VITAMINS W/ FOLIC ACID TABLET (FP) PO SCH (09:26)
[2020-09-05] MEDS: MELATONIN 5 MG TABLETS PO SCH (21:22)
[2020-09-05] MEDS: hydrOXYzine PAMOATE 25 MG CAPSULE (FP) PO PRN (21:23)
[2020-09-05] MEDS: THIAMINE HCL 100 MG TABLET (FP) PO SCH (21:23)
[2020-09-06] MEDS: PRENATAL VITAMINS W/ FOLIC ACID TABLET (FP) PO SCH (09:39)
[2020-09-06] MEDS: THIAMINE HCL 100 MG TABLET (FP) PO SCH (21:22)
[2020-09-06] MEDS: hydrOXYzine PAMOATE 25 MG CAPSULE (FP) PO PRN (21:22)
[2020-09-06] MEDS: MELATONIN 5 MG TABLETS PO SCH (21:23)
[2020-09-07] MEDS: PRENATAL VITAMINS W/ FOLIC ACID TABLET (FP) PO SCH (09:40)
[2020-09-07] MEDS: MELATONIN 5 MG TABLETS PO SCH (21:32)
[2020-09-07] MEDS: THIAMINE HCL 100 MG TABLET (FP) PO SCH (21:32)
[2020-09-07] MEDS: hydrOXYzine PAMOATE 25 MG CAPSULE (FP) PO PRN (21:32)
[2020-09-08] MEDS: PRENATAL VITAMINS W/ FOLIC ACID TABLET (FP) PO SCH (09:56)
[2020-09-08] MEDS: THIAMINE HCL 100 MG TABLET (FP) PO SCH (21:50)
[2020-09-08] MEDS: hydrOXYzine PAMOATE 25 MG CAPSULE (FP) PO PRN (21:50)
[2020-09-08] MEDS: MELATONIN 5 MG TABLETS PO SCH (21:50)
[2020-09-09] MEDS: PRENATAL VITAMINS W/ FOLIC ACID TABLET (FP) PO SCH (10:12)
[2020-09-09] MEDS: THIAMINE HCL 100 MG TABLET (FP) PO SCH (21:25)
[2020-09-09] MEDS: MELATONIN 5 MG TABLETS PO SCH (21:25)
[2020-09-09] MEDS: hydrOXYzine PAMOATE 25 MG CAPSULE (FP) PO PRN (21:25)
[2020-09-10] MEDS: PRENATAL VITAMINS W/ FOLIC ACID TABLET (FP) PO SCH (09:56)
[2020-09-10] MEDS: MELATONIN 5 MG TABLETS PO SCH (21:20)
[2020-09-10] MEDS: hydrOXYzine PAMOATE 25 MG CAPSULE (FP) PO PRN (21:20)
[2020-09-10] MEDS: THIAMINE HCL 100 MG TABLET (FP) PO SCH (21:20)
[2020-09-11] MEDS: PRENATAL VITAMINS W/ FOLIC ACID TABLET (FP) PO SCH (10:05)
[2020-09-11] MEDS: THIAMINE HCL 100 MG TABLET (FP) PO SCH (21:50)
[2020-09-11] MEDS: hydrOXYzine PAMOATE 25 MG CAPSULE (FP) PO PRN (21:50)
[2020-09-11] MEDS: MELATONIN 5 MG TABLETS PO SCH (21:50)
[2020-09-12] MEDS: PRENATAL VITAMINS W/ FOLIC ACID TABLET (FP) PO SCH (09:48)
[2020-09-12] MEDS: hydrOXYzine PAMOATE 25 MG CAPSULE (FP) PO PRN (21:46)
[2020-09-12] MEDS: MELATONIN 5 MG TABLETS PO SCH (21:46)
[2020-09-12] MEDS: THIAMINE HCL 100 MG TABLET (FP) PO SCH (21:46)
[2020-09-13] MEDS: PRENATAL VITAMINS W/ FOLIC ACID TABLET (FP) PO SCH (09:44)
[2020-09-13] MEDS: MELATONIN 5 MG TABLETS PO SCH (21:23)
[2020-09-13] MEDS: THIAMINE HCL 100 MG TABLET (FP) PO SCH (21:23)
[2020-09-13] MEDS: hydrOXYzine PAMOATE 25 MG CAPSULE (FP) PO PRN (21:23)
[2020-09-14] MEDS: PRENATAL VITAMINS W/ FOLIC ACID TABLET (FP) PO SCH (09:55)
[2020-09-14 14:12] LABS: SARS-CoV-2 NAA Not Detected (Not Detected)
[2020-09-14] MEDS: THIAMINE HCL 100 MG TABLET (FP) PO SCH (21:32)
[2020-09-14] MEDS: hydrOXYzine PAMOATE 25 MG CAPSULE (FP) PO PRN (21:32)
[2020-09-14] MEDS: MELATONIN 5 MG TABLETS PO SCH (21:32)
[2020-09-15 08:32] VITALS: BP 116/89; PULSE 79; TEMP 97
[2020-09-15] MEDS: PRENATAL VITAMINS W/ FOLIC ACID TABLET (FP) PO SCH (09:08)
== END 2020-09-15 09:25 | disposition home or self-care (01) | DRG 772 ==
LOC: YASAS 12:25 → Y5N 12:26
PROVIDERS: ADMIT Allergy & Immunology; ATTEND Allergy & Immunology
PROC: HZ42ZZZ Group Counseling for Substance Abuse Treatment, Cognitive-Behavioral (ICD-10-PCS; principal; 2020-09-02)
DX: F10.20 Alcohol dependence, uncomplicated (principal); F12.20 Cannabis dependence, uncomplicated; F17.210 Nicotine dependence, cigarettes, uncomplicated; Z56.0 Unemployment, unspecified
CPT/HCPCS: C9803; U0003; U0005